=== PATIENT | female | born 2000 | race Hispanic/Latino ===

== ENCOUNTER 2021-03-30 03:39 | Emergency (ER) | payer OTHER ==
[2021-03-30 03:54] VITALS: BP 119/90
[2021-03-30] MEDS ORDERED: DiphenhydrAMINE HCL 50 MG/ML VIAL IV ONE (04:00)
[2021-03-30 04:06] LABS: BASOPHILS % (AUTO) 0.6 % (0.0-5.0); EOSINOPHILS % (AUTO) 1.4 % (0.0-8.0); HEMATOCRIT 41.2 % (36-48); LYMPHOCYTES % (AUTO) 17.4 % (21.0-51.0); MEAN CORPUSCULAR HEMOGLOBIN 27.3 pg (27.0-33.0); MEAN CORPUSCULAR HGB CONC 33.5 g/dL (32.0-36.0); MEAN CORPUSCULAR VOLUME 81.4 fL (79-99); MONOCYTES % (AUTO) 6.9 % (3.0-13.0); NEUTROPHILS % (AUTO) 73.3 % (40.0-77.0); PLATELET COUNT (AUTO) 158 K/uL (130-400); RED BLOOD CELL COUNT(AUTO) 5.06 MIL/uL (4.00-5.50); WHITE BLOOD COUNT (AUTO) 7.3 K/uL (4.8-10.8)
[2021-03-30 04:14] LABS: POTASSIUM 3.2 mmol/L (3.5-5.1)
[2021-03-30 04:27] LABS: ALBUMIN 3.6 g/dL (3.5-5.0); BILIRUBIN,TOTAL 0.8 mg/dL (0.2-1.0); TOTAL PROTEIN, SERUM 7.4 g/dL (6.0-8.3)
[2021-03-30] MEDS ORDERED: FAMO-136 PO (04:44)
[2021-03-30] MEDS ORDERED: HYDR50CA PO (04:44)
[2021-03-30] MEDS ORDERED: ALBUHFA IH (04:44)
[2021-03-30 05:10] VITALS: BP 120/88
== END 2021-03-30 05:20 | disposition home or self-care (01) ==
LOC: EDH 03:39
DX: R07.89 Other chest pain (principal); F41.9 Anxiety disorder, unspecified; R06.02 Shortness of breath; R05 Cough; Z20.822 Contact with and (suspected) exposure to COVID-19
CPT/HCPCS: 36415; 71045; 80053; 84484; 85025; 87635; 87804 ×2; 96374; 99284; C9803; J1200

== ENCOUNTER 2023-11-04 19:05 | Inpatient (IN) | payer MEDICAID, OTHER ==
[~2023-11-04] VITALS: Ht 157.5 cm; Wt 81.5 kg
[~2023-11-04 19:05] MED LIST: ALBUHFA IH; FAMO-136 PO; HYDR50CA PO
[2023-11-04] MEDS ORDERED: IOHEXOL-350 75 ML VIAL IV ONE (20:26)
[2023-11-04 20:57] LABS: BASOPHILS # (AUTO) 0.02 K/uL (0.00-0.20); BASOPHILS % (AUTO) 0.2 % (0.0-5.0); EOSINOPHILS # (AUTO) 0.05 K/uL (0.00-0.70); EOSINOPHILS % (AUTO) 0.6 % (0.0-8.0); HEMATOCRIT 37.6 % (36-48); IMMATURE GRANULOCYTE ABSOLUTE 0.04 K/uL (0-1); LYMPHOCYTES # (AUTO) 1.5 K/uL (1.0-4.8); LYMPHOCYTES % (AUTO) 17.3 % (21.0-51.0); MEAN CORPUSCULAR HEMOGLOBIN 25.6 pg (27.0-33.0); MEAN CORPUSCULAR HGB CONC 31.6 g/dL (32.0-36.0); MEAN CORPUSCULAR VOLUME 80.9 fL (79-99); MONOCYTES # (AUTO) 0.6 K/uL (0.1-1.0); MONOCYTES % (AUTO) 7.1 % (3.0-13.0); NEUTROPHILS # (AUTO) 6.5 K/uL (1.8-7.7); NEUTROPHILS % (AUTO) 74.3 % (40.0-77.0); PLATELET COUNT (AUTO) 187 K/uL (130-400); RED BLOOD CELL COUNT(AUTO) 4.65 MIL/uL (4.00-5.50); RED CELL DISTRIBUTION WIDTH 13.9 % (11.0-15.5); WHITE BLOOD COUNT (AUTO) 8.8 K/uL (4.8-10.8)
[2023-11-04 21:12] LABS: CREATININE 0.8 mg/dL (0.5-1.5); POTASSIUM 3.4 mmol/L (3.5-5.1)
[2023-11-04 21:16] LABS: BILIRUBIN,TOTAL 0.8 mg/dL (0.2-1.0); TOTAL PROTEIN, SERUM 6.6 g/dL (6.0-8.3)
[2023-11-04] MEDS: DICYCLOMINE 20MG (10MG/ML) AMP IM STA (22:31)
[2023-11-04] MEDS: ZOSYN 3.375GM +NS 50ML IV ONE (22:31)
[2023-11-04 22:32] LABS: ADD UA MICROSCOPIC YES; APPEARANCE,URINE CLEAR (CLEAR); BILIRUBIN,URINE NEGATIVE (NEGATIVE); COLOR,URINE YELLOW (YELLOW); GLUCOSE, URINE (UA) 200 mg/dL (NEGATIVE); KETONES,URINE NEGATIVE (NEGATIVE); LEUKOCYTE ESTERASE ,URINE NEGATIVE Leu/uL (NEGATIVE); NITRATE,URINE NEGATIVE (NEGATIVE); OCCULT BLOOD,URINE NEGATIVE (NEGATIVE); PH,URINE 5.5 (5.0-8.0); PROTEIN,URINE NEGATIVE (NEGATIVE); UROBILINOGEN,URINE 3 mg/dL (0.2-1.0)
[2023-11-04] MEDS: KETOROLAC 30MG VIAL (30MG/ML) IVP ONE (22:32)
[2023-11-04 22:39] LABS: MUCUS,URINE RARE LPF (None Seen); RBC,URINE 0-1 /HPF (0-1); WBC,URINE 0-1 /HPF (0-1)
[2023-11-04 22:51] LABS: SQUAMOUS EPITHELIAL CELL,UR Few /HPF (0-2)
[2023-11-05] VITALS (8 sets, daily range): BP systolic 89–105; BP diastolic 50–61; PULSE 67–85; RESP 18–20; O2SAT 100
[2023-11-05] MEDS ORDERED: LEVETIRACETAM 1,000 MG in 0.9%NACL 100ML 100 ML IV ONE (02:00)
[2023-11-05] MEDS: LEVETIRACETAM 500 MG/5 ML SD VIAL IV SCH (03:02)
[2023-11-05] MEDS ORDERED: MORPHINE 2 MG SYG IVP PRN (04:00)
[2023-11-05] MEDS ORDERED: ACETAMINOPHEN 325 MG TAB PO PRN ×2 (04:00)
[2023-11-05] MEDS: 0.9%NACL 1000ML 1,000 ML IV SCH (04:07)
[2023-11-05] MEDS: ZOSYN 3.375GM +NS 50ML IV SCH (04:07)
[2023-11-05] MEDS: POTASSIUM CHLORIDE 20MEQ/100ML 100 ML IV PRN (04:08)
[2023-11-05 04:53] LABS: BASOPHILS # (AUTO) 0.02 K/uL (0.00-0.20); BASOPHILS % (AUTO) 0.4 % (0.0-5.0); EOSINOPHILS # (AUTO) 0.05 K/uL (0.00-0.70); HEMATOCRIT 36.8 % (36-48); IMMATURE GRANULOCYTE ABSOLUTE 0.02 K/uL (0-1); LYMPHOCYTES # (AUTO) 1.6 K/uL (1.0-4.8); LYMPHOCYTES % (AUTO) 29.7 % (21.0-51.0); MEAN CORPUSCULAR HEMOGLOBIN 25.6 pg (27.0-33.0); MEAN CORPUSCULAR HGB CONC 32.3 g/dL (32.0-36.0); MEAN CORPUSCULAR VOLUME 79.1 fL (79-99); MONOCYTES # (AUTO) 0.4 K/uL (0.1-1.0); MONOCYTES % (AUTO) 8.4 % (3.0-13.0); NEUTROPHILS # (AUTO) 3.1 K/uL (1.8-7.7); NEUTROPHILS % (AUTO) 60.1 % (40.0-77.0); PLATELET COUNT (AUTO) 192 K/uL (130-400); RED BLOOD CELL COUNT(AUTO) 4.65 MIL/uL (4.00-5.50); WHITE BLOOD COUNT (AUTO) 5.2 K/uL (4.8-10.8)
[2023-11-05 05:03] LABS: INR <= 0.93 (0.85-1.15); PROTHROMBIN TIME 10.5 SEC (9.6-11.6)
[2023-11-05 05:04] LABS: PARTIAL THROMBOPLASTIN TIME 24.3 SEC (26.3-35.5)
[2023-11-05 05:06] LABS: ALBUMIN 2.8 g/dL (3.5-5.0); BILIRUBIN,DIRECT 0.3 mg/dL (0.0-0.3); BILIRUBIN,TOTAL 0.6 mg/dL (0.2-1.0); CREATININE 0.8 mg/dL (0.5-1.5); MAGNESIUM 1.8 mg/dL (1.80-2.40); POTASSIUM 3.1 mmol/L (3.5-5.1); TOTAL PROTEIN, SERUM 6.2 g/dL (6.0-8.3)
[2023-11-05 05:08] LABS: HEMOGLOBIN A1C 7.7 % (4.0-6.0)
[2023-11-05] MEDS: FAMOTIDINE 20MG VIAL IV SCH (08:48)
[2023-11-05] MEDS: MAGNESIUM 2GM PREMIX 50ML 50 ML IV PRN (08:53)
[2023-11-05] MEDS ORDERED: COMPOUND IV MISC 1 EACH IVSOLN MISC PRN (09:30)
[2023-11-05] MEDS: LEVETIRACETAM 500 MG in 0.9%NACL 100ML 100 ML IV SCH (10:57)
[2023-11-05] MEDS: KCL 20 MEQ ERTAB PO PRN (13:29)
[2023-11-05] MEDS ORDERED: POTASSIUM CHLORIDE 20MEQ/100ML 100 ML IV PRN (13:30)
[2023-11-06] VITALS (8 sets, daily range): BP systolic 87–108; BP diastolic 48–67; PULSE 63–80; RESP 16–18; O2SAT 98
[2023-11-06 13:16] LABS: CREATININE 0.8 mg/dL (0.5-1.5); POTASSIUM 3.8 mmol/L (3.5-5.1)
[2023-11-06 13:20] LABS: BILIRUBIN,TOTAL 0.4 mg/dL (0.2-1.0); MAGNESIUM 1.9 mg/dL (1.80-2.40); TOTAL PROTEIN, SERUM 6.6 g/dL (6.0-8.3)
[2023-11-07] VITALS (31 sets, daily range): BP systolic 88–132; BP diastolic 32–76; PULSE 61–86; RESP 15–22; O2SAT 98
[2023-11-07] MEDS ORDERED: BUPIVACAINE/PF 0.25% 30ML VIAL IJ ONE (10:08)
[2023-11-07] MEDS ORDERED: BUPIVACAINE/PF 0.25% 10ML VIAL IJ ONE (10:08)
[2023-11-07] MEDS ORDERED: LIDOCAINE PF 100MG/5ML (2%) SYRINGE 5ML ONE (10:14)
[2023-11-07] MEDS ORDERED: ROCURONIUM BROMIDE 10MG/1ML 5ML VL ONE (10:15)
[2023-11-07] MEDS ORDERED: PROPOFOL 10 MG/ML 20ML VIAL IV ONE ×2 (10:15→10:59)
[2023-11-07] MEDS ORDERED: GLYCOPYRROLATE 0.2 MG/ML 5 ML VIAL ONE (10:15)
[2023-11-07] MEDS ORDERED: FENTANYL CITRATE PF 50 MCG/1 ML 2ML VIAL ONE (10:15)
[2023-11-07] MEDS ORDERED: MIDAZOLAM HCL 1 MG/ML 2ML VIAL ONE (10:19)
[2023-11-07] MEDS: LACTATED RINGERS 1000ML 1,000 ML IV ONE (10:32)
[2023-11-07] MEDS ORDERED: ONDANSETRON 4MG INJ ONE (11:11)
[2023-11-07] MEDS: BUPIVACAINE/PF 0.5% 30ML VIAL ONE (11:13)
[2023-11-07] MEDS: FENTANYL CITRATE PF 50 MCG/1 ML 2ML VIAL ONE (12:20)
[2023-11-07] MEDS: FAMOTIDINE 20MG VIAL IV ONE (12:54)
[2023-11-07] MEDS: HYDROMORPHONE 1 MG INJ ONE (12:54)
[2023-11-07] MEDS: ZOSYN 3.375GM+NS 50ML 0 ML ONE (12:54)
[2023-11-07] MEDS: POTASSIUM CHLORIDE 10% ELIXIR 20 MEQ/15 ML UDCUP PO PRN (17:56)
[2023-11-08 01:00] VITALS: BP 113/59; PULSE 86; RESP 18
[2023-11-08 03:55] LABS: BASOPHILS # (AUTO) 0.02 K/uL (0.00-0.20); BASOPHILS % (AUTO) 0.2 % (0.0-5.0); EOSINOPHILS # (AUTO) 0.06 K/uL (0.00-0.70); EOSINOPHILS % (AUTO) 0.7 % (0.0-8.0); HEMATOCRIT 39.4 % (36-48); IMMATURE GRANULOCYTE ABSOLUTE 0.04 K/uL (0-1); LYMPHOCYTES # (AUTO) 1.4 K/uL (1.0-4.8); LYMPHOCYTES % (AUTO) 16.3 % (21.0-51.0); MEAN CORPUSCULAR HEMOGLOBIN 25.5 pg (27.0-33.0); MEAN CORPUSCULAR HGB CONC 31.2 g/dL (32.0-36.0); MEAN CORPUSCULAR VOLUME 81.7 fL (79-99); MONOCYTES # (AUTO) 0.7 K/uL (0.1-1.0); MONOCYTES % (AUTO) 8.4 % (3.0-13.0); NEUTROPHILS # (AUTO) 6.1 K/uL (1.8-7.7); NEUTROPHILS % (AUTO) 73.9 % (40.0-77.0); PLATELET COUNT (AUTO) 199 K/uL (130-400); RED BLOOD CELL COUNT(AUTO) 4.82 MIL/uL (4.00-5.50); RED CELL DISTRIBUTION WIDTH 13.9 % (11.0-15.5); WHITE BLOOD COUNT (AUTO) 8.3 K/uL (4.8-10.8)
[2023-11-08 04:18] LABS: BILIRUBIN,TOTAL 0.8 mg/dL (0.2-1.0); POTASSIUM 3.3 mmol/L (3.5-5.1); TOTAL PROTEIN, SERUM 6.7 g/dL (6.0-8.3)
[2023-11-08] MEDS: KETOROLAC 15MG/ML VIAL (15MG/ML) IV ONE (04:42)
[2023-11-08 04:56] VITALS: BP 111/58; PULSE 88; RESP 18
[2023-11-08 07:38] VITALS: BP 96/50; PULSE 64; RESP 17
[2023-11-08] MEDS ORDERED: METF-444 PO (10:40)
[2023-11-08] MEDS ORDERED: LEVE1000 PO (10:40)
[2023-11-08 11:32] VITALS: BP 107/68; PULSE 83; RESP 17
== END 2023-11-08 15:45 | disposition home or self-care (01) | DRG 263 ==
LOC: EDH 19:05 → EDHIP 19:06 → 4AH 11-05 05:00 → 4CH 11-05 20:50
PROVIDERS: ADMIT Hospitalist; ATTEND Hospitalist
PROC: 0FT44ZZ Resection of Gallbladder, Percutaneous Endoscopic Approach (ICD-10-PCS; principal; 2023-11-07 10:52)
DX: K80.00 Calculus of gallbladder with acute cholecystitis without obstruction (principal); K76.0 Fatty (change of) liver, not elsewhere classified; E87.6 Hypokalemia; R73.9 Hyperglycemia, unspecified; G40.909 Epilepsy, unspecified, not intractable, without status epilepticus; Z56.0 Unemployment, unspecified; Z91.148 Patient's other noncompliance with medication regimen for other reason; Z98.891 History of uterine scar from previous surgery; Z79.899 Other long term (current) drug therapy; Z90.49 Acquired absence of other specified parts of digestive tract; Z88.5 Allergy status to narcotic agent
CPT/HCPCS: 36415; 71045; 74177; 76705; 80048; 80053; 80076; 81001; 81025; 82150; 83036; 83690; 83735; 85025; 85610; 85730; G0378; J0500; J1170; J1885; J1953; J2001; J2250; J2405; J2543; J2704; J3010; J3475; J3480; J3490; J7030; J7120; Q9967; A4216; A4222; A4223; A4600; A4649; A4930; C1769; J0665

== ENCOUNTER 2024-09-23 19:00 | Inpatient (IN) | payer SELFPAY ==
[~2024-09-23] VITALS: Ht 157.5 cm; Wt 81.9 kg
[~2024-09-23 19:00] MED LIST changes: -ALBUHFA IH; -FAMO-136 PO; -HYDR50CA PO; +LEVE1000 PO; +METF-444 PO
--- NOTE | 2024-09-23 19:27 | ERN ---
ED Note History of Present Illness Stated Complaint: SEIZURE Chief Complaint: Seizure Time Seen by MD: 19:04 Dictation: This is a 24-year-old obese female who was brought in by EMS with complaints of a seizure activity. Patient has a history of seizures during in 2022 and underwent an emergency in July of 2023. Since then she has been on Keppra 1000 mg p.o. twice a day. According to EMS family stated that she did not take her Keppra and began having seizure which lasted approximately 2 minutes and she was postictal and unresponsive. Her sugar was about 468. 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 EN route to the ER, patient had another seizure activity as she arrived which lasted approximately another 2 minutes. I witnessed the activity which was rhythmic shaking on 1 side mostly right. She was responsive by nodding and had tears rolling down her cheeks. She did not yes to if she had a headache. Temperature 98.8 pulse 106 respirations 20 blood pressure 148/80 pulse oximetry 98% on 2 L via nasal cannula placed by EMS Her chronic medical problems include diabetes mellitus, hypertension and seizure disorder Allergies: Coded Allergies: codeine (Unverified Allergy, Severe, ANAPHYLAXIS, 11/07/23) Home Meds Reported Medications Levetiracetam (Keppra) 1,000 Mg Tablet, 1000 MG PO BID, TAB 11/08/23 Metformin HCl (Metformin HCl) 500 Mg Tablet, 500 MG PO BIDMEALS, TAB 11/08/23 Past Medical History Past Medical History: Anxiety, Depression, Diabetes-Type II, Hypertension, Seizure Surgical History: Cholecystectomy, Family History: Negative Social History: Negative History: Not Applicable RN Note Reviewed/Agreed w/PFSH: Yes Review of System Dictation Constitutional: Negative for fever,chills, and weight loss Eyes: Negative for injury, pain,redness, and discharge ENT: Negative for injury,pain or swelling Cardiovascular: Negative for chest pain, palpitations, and edema Respiratory: Negative for shortness of breath, cough, and wheezing, Abdomen/GI: Negative for abdominal pain, nausea, vomiting, diarrhea, and constipation Back: Negative for injury and pain : Negative for injury, bleeding and discharge MS/Extremity: Negative for injury and deformity Skin: Negative for rash, and discoloration Neuro: Negative for headache, weakness, numbness, tingling, and seizure Psych: Negative for suicide ideation, homicidal ideation, and hallucinations Initial Vital Sign VS Vital Signs Date Time Temp Pulse Resp B/P (MAP) Pulse Ox O2 Delivery O2 Flow Rate FiO2 09/23/24 19:02 98.8 106 20 140/80 95 Room Air 09/23/24 19:50 0 21 Physical Exam Dictation General: awake, alert, NAD Head/Face: Normocephalic, atraumatic Eyes: PERRL, EOMI, vision at baseline ENT: oral cavity clear, TMs clear, no signs of infection Neck: Trachea midline, supple, no nuchal rigidity Cardiovascular: RRR, normal S1/S2, No MRGs, no JVD Respiratory: CTAB, no respiratory distress, No rales or wheezes Abdomen: Soft, non-tender, non-distended, normal bowel sounds, no guarding or rebound. Skin: Warm, dry, normal turgor, no rash MS/Extremity: Pulses equal, no cyanosis, neurovascular intact, FROM Neuro: COAx4, GCS 15, strength 5/5, CN 2-12 intact, normal cerebellar exam, normal gait, Psych: Normal behavior, mood, and affect normal Extremities-trace edema without any palpable cords, Homans sign is negative Results (Laboratory/Radiology) Laboratory/Radiology Laboratory Tests Test 09/23/24 19:23 White Blood Count 5.7 K/uL (4.8-10.8) Red Blood Count 5.20 MIL/uL (4.00-5.50) Hemoglobin 14.2 g/dL (12.0-16.0) Hematocrit 42.8 % (36-48) Mean Corpuscular Volume 82.3 fL (79-99) Mean Corpuscular Hemoglobin 27.3 pg (27.0-33.0) Mean Corpuscular Hemoglobin Concent 33.2 g/dL (32.0-36.0) Red Cell Distribution Width 13.2 % (11.0-15.5) Platelet Count 152 K/uL (130-400) Mean Platelet Volume 13.8 fL (7.5-10.5) H Immature Granulocyte % (Auto) 0.4 % (0-1) Neutrophils (%) (Auto) 65.5 % (40.0-77.0) Lymphocytes (%) (Auto) 24.2 % (21.0-51.0) Monocytes (%) (Auto) 8.1 % (3.0-13.0) Eosinophils (%) (Auto) 1.4 % (0.0-8.0) Basophils (%) (Auto) 0.4 % (0.0-5.0) Neutrophils # (Auto) 3.7 K/uL (1.8-7.7) Lymphocytes # (Auto) 1.4 K/uL (1.0-4.8) Monocytes # (Auto) 0.5 K/uL (0.1-1.0) Eosinophils # (Auto) 0.08 K/uL (0.00-0.70) Basophils # (Auto) 0.02 K/uL (0.00-0.20) Absolute Immature Granulocyte (auto 0.02 K/uL (0-1) Nucleated Red Blood Cells 0.0 % (0.0-0.19) Sodium Level 134 mmol/L (136-145) L Potassium Level 3.5 mmol/L (3.5-5.1) Chloride Level 101 mmol/L (101-111) Carbon Dioxide Level 26 mmol/L (21-32) Blood Urea Nitrogen 10 mg/dL (7-18) Creatinine 0.9 mg/dL (0.5-1.0) Glomerular Filtration Rate Calc 90 mL/min (>90) Random Glucose 359 mg/dL (70-105) H Total Calcium 8.8 mg/dL (8.5-10.1) Serum Test, Qualitative NEGATIVE (NEGATIVE) Labs Reviewed?: Yes CT Scan Comment: PATIENT: LEONARDO IBARRA MR#: [id number] : 2000 SEX: F AGE: 24 LOCATION: [facility] ORDER 38 STATUS: REG REPORT#: [id number] SERVICE 36 REASON: seizures ORDERING PHYSICIAN: GEORGI ZAVALA MD PROCEDURE: HEAD WO - CT HEAD/BRAIN W/O CONTRAST CT HEAD/BRAIN W/O CONTRAST HISTORY: Seizures COMPARISON: None TECHNIQUE: Multiple sequential axial images of the head were obtained from the base of the skull through vertex. Patient was not given contrast through intravenous route. FINDINGS: The ventricles and extraventricular CSF spaces are nondilated for patient's age. There is no midline shift, mass effect or herniation. No acute intracranial bleed is seen. Visualized portion of the paranasal sinuses are grossly within normal limits. IMPRESSION: 1. No acute intracranial bleed is seen. CT was performed with one or more following dose reduction techniques: automated exposure control, adjustment of the mA and kv according to patient's size, or use of a iterative reconstruction technique. DICTATED BY: JENIFER PATRICK MD DATE: 09/23/242002 ELECTRONICALLY SIGNED BY: JENIFER PATRICK MD DATE: 09/23/242008 ED Course ED Course Orders Procedure Category Date Status Time Cbc With Differential LAB 09/23/24 Complete 19:11 0.9%Nacl 1000ml (Ns PHA 09/23/24 In Process 1000ml) 19:30 Basic Metabolic Panel LAB 09/23/24 Complete 19:11 Levetiracetam 500 PHA 09/23/24 In Process Mg/5 Ml Sd V (Keppra 5 22:00 Vital Signs Per CPOE 09/23/24 Transmitted Routine 19:11 Pulse Ox(Continuous) RT 09/23/24 Transmitted 19:11 Saline Lock Iv CPOE 09/23/24 Transmitted 19:11 Seizure Precautions CPOE 09/23/24 Transmitted 19:11 Neuro Checks Every 4 CPOE 09/23/24 Transmitted Hours 19:11 Testing, LAB 09/23/24 Complete Serum Hcg 19:11 Urinalysis Profile LAB 09/23/24 Logged 19:11 Ct Head/Brain W/O CT 09/23/24 Resulted Contrast 19:37 Current Medications Medications (Trade) Dose Ordered Sig/Pilar Route PRN Reason Start Time Stop Time Status Last Admin Dose Admin Levetiracetam 1500 mg/Sodium Chloride 100 ml @ 400 mls/hr Q8H6 IV 09/23/24 22:00 10/23/24 21:59 09/23/24 20:02 Sodium Chloride 1,000 ml @ 125 mls/hr ONCE ONCE IV 09/23/24 19:30 09/24/24 03:29 09/23/24 19:31 Vital Signs Date Time Temp Pulse Resp B/P (MAP) Pulse Ox O2 Delivery O2 Flow Rate FiO2 09/23/24 19:50 99.1 92 32 128/73 100 Room Air* 0 21 09/23/24 19:02 98.8 106 20 140/80 95 Room Air We will perform diagnostic labs, advanced imaging and administer medications according to the patient's complaint. Once the results are available, will review and personally interpreted the labs to rule out any acute life- threatening emergency the trach require immediate intervention and treatment. I will then re-evaluate the patient after treatment and diagnostic exams have return to determine whether the patient requires any further testing, can safely be discharged home or need further admission to hospital for additional treatment and evaluation. Medical Decision Making MDM MDM: Differential diagnosis: Suspect seizures secondary to noncompliance with antiepileptic agents however the other possibilities would be, , lack of sleep, stress, dehydration, injury Rationale: Tests considered and ordered secondary to shared decision making include: labs, ECG and radiology Previous outside records reviewed: Old ER visits. Risk of complication and/or morbidity or mortality of patient management: None Medications-Per medication reconciliation Need for hospitalization: Patient does meet criteria for hospitalization. Need for emergency major/minor surgery: No There are no social concerns with this patient. Prescription drug management Prescriptions will include symptomatic care Patient's prior external medical records from other ER visits were reviewed by me as indicated. Prior testing and results from previous visits were reviewed. Prior tests were taken into account with medical decision making and resource utilization, independent historian/historians were used to obtain complete medical history. I independently interpreted the test that were performed, results were reviewed by me and considered findings on radiology if ordered. Medical management and examination interpretation discussions were had by me with other qualified healthcare professionals as indicated for the patient's care. Problem List Problem List: (1) Uncontrolled diabetes mellitus with hyperglycemia (2) Recurrent seizures (3) Anxiety DX & DISP Disposition: Inpatient Decision to Admit Time: 20:24 Departure Impression: Primary Impression: Recurrent seizures Additional Impressions: Uncontrolled diabetes mellitus with hyperglycemia, Anxiety, Medically noncompliant Condition: Stable Additional Instructions: Patient was informed of all the diagnostic labs and procedures conducted in the emergency room today and demonstrated understanding of the results. I personally reviewed and interpreted all the diagnostic exams performed in the ER today. The patient will be admitted to the hospital for further treatment and evaluation. Disposition-admit to facility Condition-stable/guarded Course-uncertain at this time Pain status-decreased Assessment-exam unchanged Admission Certification- I certify that the patients status is appropriate and is based on my best clinical judgment and the patient's condition as documented in the medical records Referrals: SELF,REFERRAL (PCP) GEORGI ZAVALA MD Sep 23, 2024 19:27
[2024-09-23 19:30] LABS: BASOPHILS # (AUTO) 0.02 K/uL (0.00-0.20); BASOPHILS % (AUTO) 0.4 % (0.0-5.0); EOSINOPHILS # (AUTO) 0.08 K/uL (0.00-0.70); EOSINOPHILS % (AUTO) 1.4 % (0.0-8.0); HEMATOCRIT 42.8 % (36-48); IMMATURE GRANULOCYTE ABSOLUTE 0.02 K/uL (0-1); LYMPHOCYTES # (AUTO) 1.4 K/uL (1.0-4.8); LYMPHOCYTES % (AUTO) 24.2 % (21.0-51.0); MEAN CORPUSCULAR HEMOGLOBIN 27.3 pg (27.0-33.0); MEAN CORPUSCULAR HGB CONC 33.2 g/dL (32.0-36.0); MEAN CORPUSCULAR VOLUME 82.3 fL (79-99); MONOCYTES # (AUTO) 0.5 K/uL (0.1-1.0); MONOCYTES % (AUTO) 8.1 % (3.0-13.0); NEUTROPHILS # (AUTO) 3.7 K/uL (1.8-7.7); NEUTROPHILS % (AUTO) 65.5 % (40.0-77.0); PLATELET COUNT (AUTO) 152 K/uL (130-400); RED CELL DISTRIBUTION WIDTH 13.2 % (11.0-15.5); WHITE BLOOD COUNT (AUTO) 5.7 K/uL (4.8-10.8)
[2024-09-23] MEDS: 0.9%NACL 1000ML 1,000 ML IV ONE (19:31)
[2024-09-23 19:37] LABS: CREATININE 0.9 mg/dL (0.5-1.0); POTASSIUM 3.5 mmol/L (3.5-5.1)
[2024-09-23] MEDS: leveTIRACEtam 500 MG/5 ML SD V 1,500 MG in 0.9%NACL 100ML 100 ML IV SCH (20:02)
--- NOTE | 2024-09-23 20:09 | HMCIMG ---
CT HEAD/BRAIN W/O CONTRAST HISTORY: Seizures COMPARISON: None TECHNIQUE: Multiple sequential axial images of the head were obtained from the base of the skull through vertex. Patient was not given contrast through intravenous route. FINDINGS: The ventricles and extraventricular CSF spaces are nondilated for patient's age. There is no midline shift, mass effect or herniation. No acute intracranial bleed is seen. Visualized portion of the paranasal sinuses are grossly within normal limits. IMPRESSION: 1. No acute intracranial bleed is seen. CT was performed with one or more following dose reduction techniques: automated exposure control, adjustment of the mA and kv according to patient's size, or use of a iterative reconstruction technique.
--- NOTE | 2024-09-23 20:54 | NUR ---
DR. ZAVALA AT BEDSIDE AT THIS TIME, PT MORE RESPONSIVE, ABLE TO ANSWER QUESTIONS.
[2024-09-23 21:47] LABS: APPEARANCE,URINE CLEAR (CLEAR); BILIRUBIN,URINE NEGATIVE (NEGATIVE); COLOR,URINE LIGHT-YELLOW (YELLOW); GLUCOSE, URINE (UA) >=1000 mg/dL (NEGATIVE); KETONES,URINE 5 mg/dL (NEGATIVE); LEUKOCYTE ESTERASE ,URINE NEGATIVE Leu/uL (NEGATIVE); NITRATE,URINE NEGATIVE (NEGATIVE); OCCULT BLOOD,URINE NEGATIVE (NEGATIVE); PH,URINE 5.5 (5.0-8.0); PROTEIN,URINE NEGATIVE (NEGATIVE); UROBILINOGEN,URINE 0.2 mg/dL (0.2-1.0)
[2024-09-23 21:54] LABS: ADD UA MICROSCOPIC YES
[2024-09-23 21:56] LABS: WBC,URINE 0-1 /HPF (0-1)
[2024-09-23 22:11] LABS: AMPHET/METH SCREEN,URINE NEGATIVE (NEGATIVE); BARBITURATE SCREEN, URINE NEGATIVE (NEGATIVE); BENZODIAZEPINES SCREEN,URINE NEGATIVE (NEGATIVE); CANNABINOID SCREEN,URINE NEGATIVE (NEGATIVE); COCAINE SCREEN,URINE NEGATIVE (NEGATIVE); OPIATE SCREEN,URINE NEGATIVE (NEGATIVE); PHENCYCLIDINE SCREEN,URINE NEGATIVE (NEGATIVE)
--- NOTE | 2024-09-23 22:28 | HP ---
[facility] HISTORY AND PHYSICAL Date of Service: Sep 23, 2024 Time of Service: 22:28 Supervising physicians: Dr. Zhou and Dr. Delgado Hernandez HISTORY OF PRESENT ILLNESS: Ms Knight is a 24-year-old female with a history of DM, HTN, obesity, anxiety, and seizure who was brought in by EMS for evaluation of a seizure activity. Patient has a history of seizures during in 2022 and underwent an emergency in July of 2023. Since then she has been on Keppra 1000 mg p.o. twice a day. According to EMS family stated that she did not take her Keppra and began having seizure which lasted approximately 2 minutes and she was postictal and unresponsive. Her sugar was about 468. 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 EN route to the ER, patient had another seizure activity as she arrived which lasted approximately another 2 minutes. ED provider witnessed the activity which was rhythmic shaking on 1 side mostly right. She was responsive by nodding and had tears rolling down her cheeks. Ed reported that she did nodded yes when asked if she had a headache. V/S on arrival: Temperature 98.8 pulse 106 respirations 20 blood pressure 148/80 pulse oximetry 98% on 2 L via nasal cannula placed by EMS In ED patient was administered NS IV and Keppra IV [address] head was negative. ED provider request patient be admitted with the diagnosis of recurrent seizure, uncontrolled DM with hyperglycemia, anxiety, medical noncompliance. The patient was seen/assessed by me in room ED 11. Breathing was even, unlabored, in no distress. Oriented x4. patient denied headache. She stated that she has not taken any medications for her diabetes for her seizures, and that she is currently not seen a doctor. I informed her of labs, diagnostics, plan of care. She verbalized understanding and is agreement with the plan. Plan and assessment are listed below. REVIEW OF SYSTEMS 12-point ROS reviewed with patient. All pertinent positives mentioned above, otherwise negative, noncontributory, or non-pertinent. PAST MEDICAL HISTORY: Anxiety, depression, diabetes mellitus type 2, hypertension, seizure PAST SURGICAL HISTORY: , cholecystectomy PAST SOCIAL HISTORY: Denies: Alcohol, tobacco, illicit drug use. FAMILY HISTORY: Negative Coded Allergies: codeine (Unverified Allergy, Severe, ANAPHYLAXIS, 11/07/23) PHYSICAL EXAM GENERAL APPEARANCE: The patient is awake, alert, and oriented, in no acute cardiopulmonary distress. NEUROLOGICAL: Cranial nerves II-XII grossly intact. Motor is 5/5 in bilateral upper and lower extremities proximal to distal. No sensory deficits. HEENT: Face is symmetric. Pupils are equal and reactive. Extraocular movements are intact. NECK: Supple. No JVD. No thyromegaly. No submental, submandibular, pre- /postauricular, occipital or supraclavicular lymphadenopathy. CHEST: Normal chest expansion. No Telemetry. LUNGS: Absence of any rales, rhonchi or any wheezing. CARDIOVASCULAR: Regular. S1 and S2 normal. No appreciable rubs, murmurs or gallops. ABDOMEN: Obese. Soft, nontender, and nondistended. There is no rebound, voluntary guarding, or rigidity. : Deferred. No Alexander. EXTREMITIES: Non-edematous and not cyanotic. No clubbing. Good capillary refill. SKIN: No skin breakdown. Vital Sign (Last 24 Hours) 09/23/24 09/23/24 19:50 21:07 Temp 99.1 Pulse 75 Resp 21 B/P (MAP) 109/68 Pulse Ox 99 O2 Delivery Room Air* O2 Flow Rate 0 FiO2 21 LABS: Laboratory: Test 09/23/24 21:25 09/23/24 19:23 Range/Units Urine Color LIGHT-YELLOW YELLOW Urine Appearance CLEAR CLEAR Urine pH 5.5 5.0-8.0 Urine Specific [place] 1.039 H 1.001-1.031 Urine Protein NEGATIVE NEGATIVE mg/dL Urine Glucose (UA) >=1000 H NEGATIVE mg/dL Urine Ketones 5 H NEGATIVE mg/dL Urine Occult Blood NEGATIVE NEGATIVE Urine Nitrate NEGATIVE NEGATIVE Urine Bilirubin NEGATIVE NEGATIVE mg/dL Urine Urobilinogen 0.2 0.2-1.0 mg/dL Urine Leukocyte Esterase NEGATIVE NEGATIVE Pascual/uL Urine RBC 2-5 H 0-1 /HPF Urine WBC 0-1 0-1 /HPF Urine Bacteria None None Seen /HPF Urine Opiates Screen NEGATIVE NEGATIVE Urine Barbiturates Screen NEGATIVE NEGATIVE Urine Phencyclidine Screen NEGATIVE NEGATIVE Urine Amphetamines Screen NEGATIVE NEGATIVE Urine Benzodiazepines Screen NEGATIVE NEGATIVE Urine Cocaine Screen NEGATIVE NEGATIVE Urine Marijuana (THC) Screen NEGATIVE NEGATIVE White Blood Count 5.7 4.8-10.8 K/uL Red Blood Count 5.20 4.00-5.50 MIL/uL Hemoglobin 14.2 12.0-16.0 g/dL Hematocrit 42.8 36-48 % Mean Corpuscular Volume 82.3 79-99 fL Mean Corpuscular Hemoglobin 27.3 27.0-33.0 pg Mean Corpuscular Hemoglobin Concent 33.2 32.0-36.0 g/dL Red Cell Distribution Width 13.2 11.0-15.5 % Platelet Count 152 130-400 K/uL Mean Platelet Volume 13.8 H 7.5-10.5 fL Immature Granulocyte % (Auto) 0.4 0-1 % Neutrophils (%) (Auto) 65.5 40.0-77.0 % Lymphocytes (%) (Auto) 24.2 21.0-51.0 % Monocytes (%) (Auto) 8.1 3.0-13.0 % Eosinophils (%) (Auto) 1.4 0.0-8.0 % Basophils (%) (Auto) 0.4 0.0-5.0 % Neutrophils # (Auto) 3.7 1.8-7.7 K/uL Lymphocytes # (Auto) 1.4 1.0-4.8 K/uL Monocytes # (Auto) 0.5 0.1-1.0 K/uL Eosinophils # (Auto) 0.08 0.00-0.70 K/uL Basophils # (Auto) 0.02 0.00-0.20 K/uL Absolute Immature Granulocyte (auto 0.02 0-1 K/uL Nucleated Red Blood Cells 0.0 0.0-0.19 % Sodium Level 134 L 136-145 mmol/L Potassium Level 3.5 3.5-5.1 mmol/L Chloride Level 101 101-111 mmol/L Carbon Dioxide Level 26 21-32 mmol/L Blood Urea Nitrogen 10 7-18 mg/dL Creatinine 0.9 0.5-1.0 mg/dL Glomerular Filtration Rate Calc 90 >90 mL/min Random Glucose 359 H 70-105 mg/dL Total Calcium 8.8 8.5-10.1 mg/dL Serum Test, Qualitative NEGATIVE NEGATIVE Current Medications Medications (Trade) Dose Ordered Sig/Pilar Route PRN Reason Start Time Stop Time Status Last Admin Dose Admin Levetiracetam 1500 mg/Sodium Chloride 100 ml @ 400 mls/hr Q8H6 IV 09/23/24 22:00 10/23/24 21:59 09/23/24 20:02 400 MLS/HR DIAGNOSTICS / RADIOLOGY: [ ] ASSESSMENT: Recurrent seizure, POA currently not taking antiseizure medication Uncontrolled diabetes with hyperglycemia, POA Hypertension, P Hyponatremia, POA Ketonuria, POA Anxiety Depression Obesity, BMI 29 Medication noncompliance PLAN: Admit patient to medical floor with telemetry monitoring and seizure precaution. Continue Keppra 1500 mg IV q.8 hours for now. Continue NS at 100 mL an hour. Follow up with Neurology upon discharge for seizure monitoring, no neurologist in-house. Education done on obtaining a family doctor for medical management of chronic conditions. Education done on weight loss. Supplemental oxygen as needed to keep SpO2 equal to greater than 92%. P.r.n. medications for: Pain management, fever, hypertension, nausea, vomiting, constipation. Glucometer checks a.c. and HS with insulin regular sliding scale coverage as needed per protocol. Blood pressure checks every4 hours and as needed. Reconcile home medications once available. Monitor renal and liver function. Monitor electrolytes and treat accordingly. A.m. labs: CBC, BMP, Mag, phos, TSH, A1c. GI and DVT prophylaxis Protonix and Lovenox Further orders per hospitalization course. ADVANCED CARE PLANNING 1. Which of the following were discussed? Hospice Care - No Therapeutic options - Yes Advance Directives - Yes Other discussions - 2. Discussed with who? Patient 3. Voluntary nature of this service was explained to the patient? Yes 4. Amount of time spent - __ over 35 minute 5. Reviewed by Physician? (if this service was performed by NPP) Yes / No ADDENDUM: - Order EEG - Transition to PO keppra - Order A1C and follow up - Continue seizure precautions ATTENDING PHYSICIAN ATTESTATION: I have seen and discussed this patient with the midlevel and I agree with their plan. See my addendum for updates to the medical plan MD MARIKA Jacinto LUCIA M [facility] Sep 23, 2024 22:28 INDIO ZHOU MD Sep 24, 2024 20:07
[2024-09-23] MEDS ORDERED: acetaMINOPHEN 325 MG TAB PO PRN (22:30)
[2024-09-23] MEDS ORDERED: GLUCAGON 1MG KIT 1 MG ML IM PRN (22:30)
[2024-09-23] MEDS ORDERED: acetaMINOPHEN 650 MG SUPPOSITORY RC PRN (22:30)
[2024-09-23] MEDS ORDERED: PoTASSium chloRIDE 20MEQ/100ML 100 ML IV PRN (22:30)
[2024-09-23] MEDS ORDERED: doCUSate SODIUM 100 MG CAP PO PRN (22:30)
[2024-09-23] MEDS ORDERED: TEMAZepam 15 MG CAPSULE PO PRN (22:30)
[2024-09-23] MEDS ORDERED: LACTULOSE 20 GM/30 ML UDCUP PO PRN (22:30)
[2024-09-23] MEDS ORDERED: hydrALAZine 20MG/ML VIAL IV PRN (22:30)
[2024-09-23] MEDS ORDERED: ondanSETRON 4MG INJ IVP PRN (22:30)
[2024-09-23] MEDS ORDERED: DEXTROSE 50%-WATER 50 ML DISP.SYRIN IV PRN (22:30)
[2024-09-23] MEDS: 0.9%NACL 1000ML 1,000 ML IV SCH (22:37)
[2024-09-23 23:05] LABS: SARS-CoV-2, RNA, NAAT NEGATIVE SARS CoV-2 (NEGATIVE)
[2024-09-23 23:09] LABS: INFLUENZA TYPE A Negative For Type A (NEGATIVE); INFLUENZA TYPE B Negative For Type B (NEGATIVE)
[2024-09-24 06:49] LABS: HEMATOCRIT 40.4 % (36-48); MEAN CORPUSCULAR HEMOGLOBIN 27.1 pg (27.0-33.0); MEAN CORPUSCULAR HGB CONC 31.7 g/dL (32.0-36.0); MEAN CORPUSCULAR VOLUME 85.4 fL (79-99); RED BLOOD CELL COUNT(AUTO) 4.73 MIL/uL (4.00-5.50); RED CELL DISTRIBUTION WIDTH 13.2 % (11.0-15.5); WHITE BLOOD COUNT (AUTO) 5.1 K/uL (4.8-10.8)
[2024-09-24 07:16] LABS: CREATININE 0.8 mg/dL (0.5-1.0); MAGNESIUM 1.6 mg/dL (1.80-2.40); POTASSIUM 3.7 mmol/L (3.5-5.1); THYROID STIMULATING HORMONE 1.59 uIU/mL (0.36-3.74)
[2024-09-24] MEDS: INSULIN humuLIN R 100 UNIT/ML 3ML SQ SCH (08:34)
[2024-09-24] MEDS: ENOXAPARIN SODIUM 30 MG/0.3 ML SQ SCH (08:38)
[2024-09-24] MEDS: PANTOPrazole 40 MG TAB DR PO SCH (08:38)
[2024-09-24 09:35] LABS: HEMOGLOBIN A1C 10.7 % (4.0-6.0)
[2024-09-24] MEDS: INSULIN GLARgine 100 UNITS/ML 10 ML VIAL SQ SCH (09:42)
--- NOTE | 2024-09-24 10:49 | NUR ---
PT HAD A 5 MIN SEIZURE PRN MEDICATION GIVEN. SEIZURE PROTOCOL PRECAUTIONS WERE IN PLACE.
[2024-09-24] MEDS: LORazepam 2 MG/ML 1 ML VIAL IVP PRN (10:52)
--- NOTE | 2024-09-24 14:13 | NUR ---
PT HAD A 4 MIN SEIZURE IN BED, SEIZURE PRECAUTIONS, PRN MEDICATION GIVEN. HR 96 100% BP 91/74
--- NOTE | 2024-09-24 14:24 | NUR ---
Ameena left message for Reema Knight, mother [phone]. Sw attempted to reach pt at work #, was told they have no one by that name that works there.
[2024-09-24 14:36] LABS: HIV 1&2 ANTIBODY Non-Reactive (Negative); HIV-1 p24 Antigen Non-Reactive (Negative)
[2024-09-24] MEDS: PoTASSium chl 10% ELIXIR 20MEQ 20 MEQ/15 ML UDCUP PO PRN (17:53)
[2024-09-24] MEDS: MAGNESIUM 2GM PREMIX 50ML 50 ML IV PRN (17:53)
--- NOTE | 2024-09-24 20:04 | NUR ---
REPORT GIVEN TO CUAC ODELL ALL QUESTIONS ANSWERED AT THIS TIME
--- NOTE | 2024-09-24 20:15 | PN ---
[facility] PROGRESS NOTE Date of Service: Sep 24, 2024 Time of Service: 20:08 SUBJECTIVE: 2/3 Pt seen at bedside, no acute events overnight. Nursing reports another seizure this am broken with IV ativan. She has been stable otherwise. At bedside patient is sleepy but asymptomatic. She reports she has been asymptomatic with all her medications as she does not have insurance. Social se rvices consulted to assist with getting affordable medications and care. EEG has been ordered, patient transitioned to PO keppra at an increased dose. Continue observation with seizure precautions. REVIEW OF SYSTEMS 12-point ROS reviewed with patient. All pertinent positives mentioned above, otherwise negative, noncontributory, or non-pertinent. PHYSICAL EXAM GENERAL APPEARANCE: The patient is awake, alert, and oriented, in no acute cardiopulmonary distress. NEUROLOGICAL: Cranial nerves II-XII grossly intact. Motor is 5/5 in bilateral upper and lower extremities proximal to distal. No sensory deficits. HEENT: Face is symmetric. Pupils are equal and reactive. Extraocular movements are intact. NECK: Supple. No JVD. No thyromegaly. No submental, submandibular, pre- /postauricular, occipital or supraclavicular lymphadenopathy. CHEST: Normal chest expansion. No Telemetry. LUNGS: Absence of any rales, rhonchi or any wheezing. CARDIOVASCULAR: Regular. S1 and S2 normal. No appreciable rubs, murmurs or gallops. ABDOMEN: Obese. Soft, nontender, and nondistended. There is no rebound, voluntary guarding, or rigidity. : Deferred. No Alexander. EXTREMITIES: Non-edematous and not cyanotic. No clubbing. Good capillary refill. SKIN: No skin breakdown. Vital Signs (last 8hr) Date Time Temp Pulse Resp B/P (MAP) Pulse Ox O2 Delivery O2 Flow Rate FiO2 09/24/24 18:13 98.8 90 18 116/78 95 Nasal Cannula* 10 1909/24/24 16:54 98.8 86 18 107/64 95 Nasal Cannula* 10 1909/24/24 13:00 98.8 82 18 108/70 95 Nasal Cannula* 10 19 LABS: Laboratory: Test 09/24/24 17:59 09/24/24 13:37 09/24/24 09:43 09/24/24 06:33 Range/Units Whole Blood Glucose 241 H 70-110 MG/DL HIV (1&2) Antibody Non-Reactive Negative HIV P24 Antigen, Qualitative Non-Reactive Negative Lactic Acid Level 1.7 0.8-2.5 mmol/L White Blood Count 5.1 4.8-10.8 K/uL Red Blood Count 4.73 4.00-5.50 MIL/uL Hemoglobin 12.8 12.0-16.0 g/dL Hematocrit 40.4 36-48 % Mean Corpuscular Volume 85.4 79-99 fL Mean Corpuscular Hemoglobin 27.1 27.0-33.0 pg Mean Corpuscular Hemoglobin Concent 31.7 L 32.0-36.0 g/dL Red Cell Distribution Width 13.2 11.0-15.5 % Platelet Count 138 130-400 K/uL Mean Platelet Volume 13.7 H 7.5-10.5 fL Nucleated Red Blood Cells 0.0 0.0-0.19 % Sodium Level 143 136-145 mmol/L Potassium Level 3.7 3.5-5.1 mmol/L Chloride Level 110 101-111 mmol/L Carbon Dioxide Level 27 21-32 mmol/L Blood Urea Nitrogen 8 7-18 mg/dL Creatinine 0.8 0.5-1.0 mg/dL Glomerular Filtration Rate Calc 104 >90 mL/min Random Glucose 228 H 70-105 mg/dL Hemoglobin A1c 10.7 H 4.0-6.0 % Estimated Average Glucose (eAG) 260 H 70-126 mg/dL Total Calcium 8.2 L 8.5-10.1 mg/dL Phosphorus Level 3.0 2.5-4.9 mg/dL Magnesium Level 1.60 L 1.80-2.40 mg/dL Total Creatine Kinase 38 21-232 U/L Thyroid Stimulating Hormone (TSH) 1.59 0.36-3.74 uIU/mL Test 09/23/24 22:30 09/23/24 21:25 09/23/24 19:23 Range/Units Influenza Type A Antigen Negative For Type A NEGATIVE Influenza Type B Antigen Negative For Type B NEGATIVE SARS-CoV-2, RNA, NAAT NEGATIVE SARS CoV-2 NEGATIVE Urine Color LIGHT-YELLOW YELLOW Urine Appearance CLEAR CLEAR Urine pH 5.5 5.0-8.0 Urine Specific [place] 1.039 H 1.001-1.031 Urine Protein NEGATIVE NEGATIVE mg/dL Urine Glucose (UA) >=1000 H NEGATIVE mg/dL Urine Ketones 5 H NEGATIVE mg/dL Urine Occult Blood NEGATIVE NEGATIVE Urine Nitrate NEGATIVE NEGATIVE Urine Bilirubin NEGATIVE NEGATIVE mg/dL Urine Urobilinogen 0.2 0.2-1.0 mg/dL Urine Leukocyte Esterase NEGATIVE NEGATIVE Pascual/uL Urine RBC 2-5 H 0-1 /HPF Urine WBC 0-1 0-1 /HPF Urine Bacteria None None Seen /HPF Urine Opiates Screen NEGATIVE NEGATIVE Urine Barbiturates Screen NEGATIVE NEGATIVE Urine Phencyclidine Screen NEGATIVE NEGATIVE Urine Amphetamines Screen NEGATIVE NEGATIVE Urine Benzodiazepines Screen NEGATIVE NEGATIVE Urine Cocaine Screen NEGATIVE NEGATIVE Urine Marijuana (THC) Screen NEGATIVE NEGATIVE Immature Granulocyte % (Auto) 0.4 0-1 % Neutrophils (%) (Auto) 65.5 40.0-77.0 % Lymphocytes (%) (Auto) 24.2 21.0-51.0 % Monocytes (%) (Auto) 8.1 3.0-13.0 % Eosinophils (%) (Auto) 1.4 0.0-8.0 % Basophils (%) (Auto) 0.4 0.0-5.0 % Neutrophils # (Auto) 3.7 1.8-7.7 K/uL Lymphocytes # (Auto) 1.4 1.0-4.8 K/uL Monocytes # (Auto) 0.5 0.1-1.0 K/uL Eosinophils # (Auto) 0.08 0.00-0.70 K/uL Basophils # (Auto) 0.02 0.00-0.20 K/uL Absolute Immature Granulocyte (auto 0.02 0-1 K/uL Serum Test, Qualitative NEGATIVE NEGATIVE Current Medications Medications (Trade) Dose Ordered Sig/Pilar Route PRN Reason Start Time Stop Time Status Last Admin Dose Admin Acetaminophen (TYLenol 325MG TAB) 650 mg Q6H PRN PO FEVER/MILD PAIN LEVEL 1-3 09/23/24 22:30 10/23/24 22:29 Acetaminophen (TYLenol 650MG SUPPOSITORY) 650 mg Q6H PRN RC FEVER / MILD PAIN 1-3 IF NPO 09/23/24 22:30 10/23/24 22:29 Dextrose (D50w) 50 ml AD PRN IV HYPOGLYCEMIA PROTOCOL 09/23/24 22:30 10/23/24 22:29 Docusate Sodium (COLace 100MG CAP) 100 mg BID PRN PO c 2/2/25 22:30 10/23/24 22:29 Enoxaparin Sodium (Lovenox) 30 mg DAILY SQ 09/24/24 09:00 10/24/24 08:59 09/24/24 08:38 30 MG Glucagon (Glucagon 1mg Kit) 1 mg AD PRN IM HYPOGLYCEMIA PROTOCOL 09/23/24 22:30 10/23/24 22:29 Hydralazine HCl (APRESOLine 20MG INJ) 10 mg Q2H PRN IV SBP GREATER THAN 160 09/23/24 22:30 10/23/24 22:29 Insulin Glargine (LANtus 100 UNITS/ML 10 ML VIAL) 10 units BID@0730,2100 SQ 09/24/24 09:30 10/24/24 09:29 09/24/24 09:42 10 UNITS Insulin Human Regular (humuLIN R 100 UNIT/ML 3ML) INSULIN SLIDING SCAL... ACHS SQ 09/24/24 07:30 10/24/24 07:29 09/24/24 18:03 8 UNIT Lactulose (Constulose 20gm/ 30ml Udcup) 20 gm Q6H PRN PO CONSTIPATION 09/23/24 22:30 10/23/24 22:29 Levetiracetam (kepPRA 500 MG TABLET) 1,000 mg BID PO 09/24/24 21:00 09/24/24 12:07 DC Levetiracetam (kepPRA 500 MG TABLET) 1,500 mg BID PO 09/24/24 21:00 10/24/24 20:59 Levetiracetam 1500 mg/Sodium Chloride 100 ml @ 400 mls/hr Q8H6 IV 09/23/24 22:00 09/24/24 09:07 DC 09/24/24 05:47 400 MLS/HR Lorazepam (AtiVAN) 1 mg Q1H PRN IVP SEIZURES 09/23/24 22:30 09/30/24 22:29 09/24/24 19:55 1 MG Magnesium Sulfate 50 ml @ 0 mls/hr PROTOCOL PRN IV MAGNESIUM PROTOCOL 09/23/24 22:30 10/23/24 22:29 09/24/24 17:53 1.6 MLS/HR Ondansetron HCl (zoFRAN 4MG INJ) 4 mg Q6H PRN IVP NAUSEA/VOMITING 09/23/24 22:30 10/23/24 22:29 Pantoprazole Sodium (PROTonix 40MG TAB) 40 mg DAILY PO 09/24/24 09:00 10/24/24 08:59 09/24/24 08:38 40 MG Potassium Chloride 100 ml @ 100 mls/hr AD PRN IV POTASSIUM PROTOCOL 09/23/24 22:30 10/23/24 22:29 Potassium Chloride (K-Dur/Klor-Con 20meq) 20 meq AD PRN PO POTASSIUM PROTOCOL 09/23/24 22:30 10/23/24 22:29 Potassium Chloride (KCl 10% Elixir 20meq/15ml) 20 meq AD PRN PO POTASSIUM PROTOCOL 09/23/24 22:30 10/23/24 22:29 09/24/24 17:53 20 MEQ Sodium Chloride 1,000 ml @ 100 mls/hr Q10H IV 09/23/24 22:30 10/23/24 22:29 09/24/24 08:38 100 MLS/HR Temazepam (restORIL 15 MG CAP) 15 mg HS PRN PO INSOMNIA/SLEEP 09/23/24 22:30 10/23/24 22:29 DIAGNOSTICS / RADIOLOGY: [ ] ASSESSMENT: Recurrent seizure, POA currently not taking antiseizure medication Uncontrolled diabetes with hyperglycemia, POA Hypertension, P Hyponatremia, POA Ketonuria, POA Anxiety Depression Obesity, BMI 29 Medication noncompliance PLAN: Admit patient to medical floor with telemetry monitoring and seizure precaution. Continue Keppra 1500 mg PO BID Continue NS at 100 mL an hour. Follow up with Neurology upon discharge for seizure monitoring, no neurologist in-house. Education done on obtaining a family doctor for medical management of chronic conditions. EEG pending, will follow up support services manager consulted to assist with medications and PCP care Supplemental oxygen as needed to keep SpO2 equal to greater than 92%. P.r.n. medications for: Pain management, fever, hypertension, nausea, vomiting, constipation. Glucometer checks a.c. and HS with insulin regular sliding scale coverage as needed per protocol. Disposition: pending improvement in clinical status, EEG, resolution of seizures INDIO ZHOU MD Sep 24, 2024 20:15
[2024-09-24 20:16] VITALS: BP 105/62; PULSE 102; RESP 18; TEMP 98.5
[2024-09-24 20:45] VITALS: O2SAT 98
[2024-09-24] MEDS ORDERED: leveTIRACEtam 500 MG TABLET PO SCH (21:00)
[2024-09-24] MEDS: leveTIRACEtam 500 MG TABLET PO SCH (21:50)
[2024-09-24 23:05] VITALS: BP 111/78; PULSE 93; RESP 18; TEMP 97.7
--- NOTE | 2024-09-24 23:09 | NUR ---
PATIENT HYPERVENTILATING AND HEART RATE AT 140s PER TELEMETRY. PATIENT HAD STATED ON ADMISSION THAT BEFORE SHE GETS A SEIZURE, SHE BEGINS HYPERVENTILATING. 1MG OF ATIVAN GIVEN TO PATIENT IV DURING SEIZURE EPISODE. 2L OF O2 VIA NASAL CANNULA PLACED ON PATIENT. PATIENT CALM AND RESTING AFTER ATIVAN DOSE GIVEN. WILL CONTINUE TO MONITOR
[2024-09-25 04:00] VITALS: BP 91/47; PULSE 83; RESP 18; TEMP 97.9
[2024-09-25 04:59] LABS: BASOPHILS # (AUTO) 0.01 K/uL (0.00-0.20); BASOPHILS % (AUTO) 0.2 % (0.0-5.0); EOSINOPHILS # (AUTO) 0.09 K/uL (0.00-0.70); EOSINOPHILS % (AUTO) 1.6 % (0.0-8.0); HEMATOCRIT 40.1 % (36-48); IMMATURE GRANULOCYTE ABSOLUTE 0.03 K/uL (0-1); LYMPHOCYTES # (AUTO) 1.7 K/uL (1.0-4.8); LYMPHOCYTES % (AUTO) 30.1 % (21.0-51.0); MEAN CORPUSCULAR HEMOGLOBIN 26.8 pg (27.0-33.0); MEAN CORPUSCULAR HGB CONC 31.9 g/dL (32.0-36.0); MEAN CORPUSCULAR VOLUME 84.1 fL (79-99); MONOCYTES # (AUTO) 0.4 K/uL (0.1-1.0); MONOCYTES % (AUTO) 7.7 % (3.0-13.0); NEUTROPHILS # (AUTO) 3.4 K/uL (1.8-7.7); NEUTROPHILS % (AUTO) 59.9 % (40.0-77.0); PLATELET COUNT (AUTO) 149 K/uL (130-400); RED BLOOD CELL COUNT(AUTO) 4.77 MIL/uL (4.00-5.50); RED CELL DISTRIBUTION WIDTH 13.2 % (11.0-15.5); WHITE BLOOD COUNT (AUTO) 5.6 K/uL (4.8-10.8)
[2024-09-25 05:09] LABS: ALBUMIN 2.8 g/dL (3.5-5.0); BILIRUBIN,TOTAL 0.8 mg/dL (0.2-1.0); CREATININE 0.7 mg/dL (0.5-1.0); MAGNESIUM 1.9 mg/dL (1.80-2.40); PHOSPHORUS 3.3 mg/dL (2.5-4.9); POTASSIUM 3.4 mmol/L (3.5-5.1); TOTAL PROTEIN, SERUM 6.1 g/dL (6.0-8.3)
[2024-09-25 08:00] VITALS: BP 119/72; PULSE 83; RESP 18; TEMP 97.8; O2SAT 99
[2024-09-25] MEDS ORDERED: hydrOXYzine 25 MG TABLET PO PRN (08:00)
--- NOTE | 2024-09-25 08:07 | NUR ---
TRANSFER OUT REQUEST FOR INHOUSE NEUROLOGIST PER DR ZHOU. ROYA THURMAN
[2024-09-25] MEDS: hydrOXYzine 25 MG TABLET PO SCH (08:31)
[2024-09-25] MEDS: OXcarbazepine 300 MG TAB PO SCH (08:32)
--- NOTE | 2024-09-25 08:37 | NUR ---
DCP: HOME Sw spoke to pt's mother Reema Knight [phone]. Pe mother, pt currently staying with her father Emir Knight [phone] and step mother. Pt goes from father to mother's house as she wants. Pt has a 1yro child she cares for. Pt unemployed, independent, able to complete ADLS and IADLS on her own. Pt is seen at [facility] for care and meds. Pt to discharge to mother's home Addendum: 09/25/24 at 0955 by GRIFFIN LONGORIA Amended: Links added.
--- NOTE | 2024-09-25 10:00 | NUR ---
EEG EEG UNABLE TO BE PERFORMED DUE TO PATIENT HAVING VERY OILY HAIR. PATIENT PENDING TRANSFER TO [facility] FOR NEUROLOGY CARE. NOTIFIED MD OF UNSUCCESSFUL EEG. PER DR. ZHOU, CONTINUE TO ATTEMPT AND OBTAIN EEG UNTIL PATIENT IS TRANSFERRED OUT. NOTIFIED EMERGENCY DEPARTMENT NURSE.
--- NOTE | 2024-09-25 10:03 | NUR ---
TRANSFER CALL PLACE TO [facility] SPOKE WITH HS DECLINED FOR NO NEUROLOGIST ARCHITECTURAL RENDERER. ROYA THURMAN
--- NOTE | 2024-09-25 10:06 | NUR ---
TRANSFER CALL PLACE TO [facility] [phone] SPOKE WITH NEEL INTAKE NURSE. INFORMATION PROVIDED AND WILL CALL BACK. ROYA THURMAN
--- NOTE | 2024-09-25 10:35 | NUR ---
TRANSFER CALL BACK FROM INTAKE NURSE WITH A DECLINED FROM [facility]. [facility] DOES NOT HAVE A BED AT THIS TIME PT WILL REMAIN ON THE LIST FOR A BED WILL FOLLOW UP LATER. ROYA THURMAN
--- NOTE | 2024-09-25 11:10 | NUR ---
TRANSFER MET WITH PT AND MOTHER AT BEDSIDE INFORM OF TRANSFER PROCESS BOTH VERBALIZED UNDERSTANDING. ROYA THURMAN
[2024-09-25 12:00] VITALS: BP 104/54; PULSE 113; RESP 18; TEMP 98.3
--- NOTE | 2024-09-25 12:35 | NUR ---
TRANSFER CALL PLACE TO [facility] [phone] SPOKE WITH ISABEL INFORMATION PROVIDED WILL CALL BACK. ROYA THURMAN
--- NOTE | 2024-09-25 14:18 | NUR ---
TRANSFER REQUEST [facility] INTAKE CALL BACK FOR DENIAL PER ADMINISTRATION FOR NO BEDS. INSTRUCTED TO TRY ADÁN PRYOR RN
--- NOTE | 2024-09-25 15:20 | NUR ---
TRANSFER CALL BACK RECEIVED FROM [facility] PER NEEL INTAKE NURSE STATES WORKING ON BED AND TO FAX CLINICALS TO [phone] WHICH WAS DONE. ROYA THURMAN
--- NOTE | 2024-09-25 15:55 | PN ---
[facility] PROGRESS NOTE Date of Service: Sep 25, 2024 Time of Service: 15:51 SUBJECTIVE: 2/3 Pt seen at bedside, no acute events overnight. Nursing reports another seizure this am broken with IV ativan. She has been stable otherwise. At bedside patient is sleepy but asymptomatic. She reports she has been asymptomatic with all her medications as she does not have insurance. Social se rvices consulted to assist with getting affordable medications and care. EEG has been ordered, patient transitioned to PO keppra at an increased dose. Continue observation with seizure precautions. 2/ patient seen at bedside she was sleeping during the medical interview. Nursing reported overall seizure episodes yesterday, that were preceded by hyperventilation. Discussed these findings with the patient's mother who was at bedside and she reports patient has had several of these hypoventilation epi sodes when she gets anxious or stressed out since her last seizure approximately 13 months ago. When her mother instruct her to slow her breathing down and relax she typically comes down with no seizure activity noted. This suggests she has an underlying anxiety disorder and that perhaps the seizures are not true generalized seizures but an anxiety attack. She has been started on hydroxyzine for the anxiety and oxcarbazepine has been added for breakthrough seizure. Patient would benefit from continuous EEG monitoring, have requested patient be transferred to a hospital with a in-house neuro hospitalists with continuous EEG capabilities. supervisor pipe joints to assist. Vitals and labs are relatively unremarkable. REVIEW OF SYSTEMS 12-point ROS reviewed with patient. All pertinent positives mentioned above, otherwise negative, noncontributory, or non-pertinent. PHYSICAL EXAM GENERAL APPEARANCE: The patient is awake, alert, and oriented, in no acute cardiopulmonary distress. NEUROLOGICAL: Cranial nerves II-XII grossly intact. Motor is 5/5 in bilateral upper and lower extremities proximal to distal. No sensory deficits. HEENT: Face is symmetric. Pupils are equal and reactive. Extraocular movements are intact. NECK: Supple. No JVD. No thyromegaly. No submental, submandibular, pre- /postauricular, occipital or supraclavicular lymphadenopathy. CHEST: Normal chest expansion. No Telemetry. LUNGS: Absence of any rales, rhonchi or any wheezing. CARDIOVASCULAR: Regular. S1 and S2 normal. No appreciable rubs, murmurs or gallops. ABDOMEN: Obese. Soft, nontender, and nondistended. There is no rebound, voluntary guarding, or rigidity. : Deferred. No Alexander. EXTREMITIES: Non-edematous and not cyanotic. No clubbing. Good capillary refill. SKIN: No skin breakdown. Vital Signs (last 8hr) Date Time Temp Pulse Resp B/P (MAP) Pulse Ox O2 Delivery O2 Flow Rate FiO2 09/25/24 12:00 98.2 113 18 104/54 98 Room Air 09/25/24 08:00 99 Room Air* 0 21 09/25/24 08:00 97.9 83 18 119/72 99 Room Air LABS: Laboratory: Test 09/25/24 15:11 09/25/24 04:39 09/24/24 13:37 09/24/24 09:43 Range/Units Whole Blood Glucose 222 H 70-110 MG/DL White Blood Count 5.6 4.8-10.8 K/uL Red Blood Count 4.77 4.00-5.50 MIL/uL Hemoglobin 12.8 12.0-16.0 g/dL Hematocrit 40.1 36-48 % Mean Corpuscular Volume 84.1 79-99 fL Mean Corpuscular Hemoglobin 26.8 L 27.0-33.0 pg Mean Corpuscular Hemoglobin Concent 31.9 L 32.0-36.0 g/dL Red Cell Distribution Width 13.2 11.0-15.5 % Platelet Count 149 130-400 K/uL Mean Platelet Volume 13.7 H 7.5-10.5 fL Immature Granulocyte % (Auto) 0.5 0-1 % Neutrophils (%) (Auto) 59.9 40.0-77.0 % Lymphocytes (%) (Auto) 30.1 21.0-51.0 % Monocytes (%) (Auto) 7.7 3.0-13.0 % Eosinophils (%) (Auto) 1.6 0.0-8.0 % Basophils (%) (Auto) 0.2 0.0-5.0 % Neutrophils # (Auto) 3.4 1.8-7.7 K/uL Lymphocytes # (Auto) 1.7 1.0-4.8 K/uL Monocytes # (Auto) 0.4 0.1-1.0 K/uL Eosinophils # (Auto) 0.09 0.00-0.70 K/uL Basophils # (Auto) 0.01 0.00-0.20 K/uL Absolute Immature Granulocyte (auto 0.03 0-1 K/uL Nucleated Red Blood Cells 0.0 0.0-0.19 % Sodium Level 142 136-145 mmol/L Potassium Level 3.4 L 3.5-5.1 mmol/L Chloride Level 107 101-111 mmol/L Carbon Dioxide Level 29 21-32 mmol/L Blood Urea Nitrogen 7 7-18 mg/dL Creatinine 0.7 0.5-1.0 mg/dL Glomerular Filtration Rate Calc 122 >90 mL/min Random Glucose 192 H 70-105 mg/dL Total Calcium 8.0 L 8.5-10.1 mg/dL Phosphorus Level 3.3 2.5-4.9 mg/dL Magnesium Level 1.90 1.80-2.40 mg/dL Total Bilirubin 0.8 0.2-1.0 mg/dL Aspartate Amino Transf (AST/SGOT) 51 H 10-37 U/L Alanine Aminotransferase (ALT/SGPT) 152 H 12-78 U/L Alkaline Phosphatase 94 50-136 U/L Total Protein 6.1 6.0-8.3 g/dL Albumin 2.8 L 3.5-5.0 g/dL HIV (1&2) Antibody Non-Reactive Negative HIV P24 Antigen, Qualitative Non-Reactive Negative Lactic Acid Level 1.7 0.8-2.5 mmol/L Test 09/24/24 06:33 09/23/24 22:30 09/23/24 21:25 09/23/24 19:23 Range/Units Hemoglobin A1c 10.7 H 4.0-6.0 % Estimated Average Glucose (eAG) 260 H 70-126 mg/dL Total Creatine Kinase 38 21-232 U/L Thyroid Stimulating Hormone (TSH) 1.59 0.36-3.74 uIU/mL Influenza Type A Antigen Negative For Type A NEGATIVE Influenza Type B Antigen Negative For Type B NEGATIVE SARS-CoV-2, RNA, NAAT NEGATIVE SARS CoV-2 NEGATIVE Urine Color LIGHT-YELLOW YELLOW Urine Appearance CLEAR CLEAR Urine pH 5.5 5.0-8.0 Urine Specific [place] 1.039 H 1.001-1.031 Urine Protein NEGATIVE NEGATIVE mg/dL Urine Glucose (UA) >=1000 H NEGATIVE mg/dL Urine Ketones 5 H NEGATIVE mg/dL Urine Occult Blood NEGATIVE NEGATIVE Urine Nitrate NEGATIVE NEGATIVE Urine Bilirubin NEGATIVE NEGATIVE mg/dL Urine Urobilinogen 0.2 0.2-1.0 mg/dL Urine Leukocyte Esterase NEGATIVE NEGATIVE Pascual/uL Urine RBC 2-5 H 0-1 /HPF Urine WBC 0-1 0-1 /HPF Urine Bacteria None None Seen /HPF Urine Opiates Screen NEGATIVE NEGATIVE Urine Barbiturates Screen NEGATIVE NEGATIVE Urine Phencyclidine Screen NEGATIVE NEGATIVE Urine Amphetamines Screen NEGATIVE NEGATIVE Urine Benzodiazepines Screen NEGATIVE NEGATIVE Urine Cocaine Screen NEGATIVE NEGATIVE Urine Marijuana (THC) Screen NEGATIVE NEGATIVE Serum Test, Qualitative NEGATIVE NEGATIVE Current Medications Medications (Trade) Dose Ordered Sig/Pilar Route PRN Reason Start Time Stop Time Status Last Admin Dose Admin Acetaminophen (TYLenol 325MG TAB) 650 mg Q6H PRN PO FEVER/MILD PAIN LEVEL 1-3 09/23/24 22:30 10/23/24 22:29 Acetaminophen (TYLenol 650MG SUPPOSITORY) 650 mg Q6H PRN RC FEVER / MILD PAIN 1-3 IF NPO 09/23/24 22:30 10/23/24 22:29 Dextrose (D50w) 50 ml AD PRN IV HYPOGLYCEMIA PROTOCOL 09/23/24 22:30 10/23/24 22:29 Docusate Sodium (COLace 100MG CAP) 100 mg BID PRN PO c 09/23/24 22:30 10/23/24 22:29 Enoxaparin Sodium (Lovenox) 30 mg DAILY SQ 09/24/24 09:00 10/24/24 08:59 09/25/24 08:32 30 MG Glucagon (Glucagon 1mg Kit) 1 mg AD PRN IM HYPOGLYCEMIA PROTOCOL 09/23/24 22:30 10/23/24 22:29 Hydralazine HCl (APRESOLine 20MG INJ) 10 mg Q2H PRN IV SBP GREATER THAN 160 09/23/24 22:30 10/23/24 22:29 Hydroxyzine HCl (ATArax 25MG TAB) 25 mg TID PO 09/25/24 09:00 10/25/24 07:59 09/25/24 14:10 25 MG Hydroxyzine HCl (ATArax 25MG TAB) 25 mg TID PRN PO ITCHING 09/25/24 08:00 09/25/24 08:16 DC Insulin Glargine (LANtus 100 UNITS/ML 10 ML VIAL) 10 units BID@0730,2100 SQ 09/24/24 09:30 10/24/24 09:29 09/25/24 08:40 10 UNITS Insulin Human Regular (humuLIN R 100 UNIT/ML 3ML) INSULIN SLIDING SCAL... ACHS SQ 09/24/24 07:30 10/24/24 07:29 09/25/24 12:12 10 UNIT Lactulose (Constulose 20gm/ 30ml Udcup) 20 gm Q6H PRN PO CONSTIPATION 09/23/24 22:30 10/23/24 22:29 Levetiracetam (kepPRA 500 MG TABLET) 1,000 mg BID PO 09/24/24 21:00 09/24/24 12:07 DC Levetiracetam (kepPRA 500 MG TABLET) 1,500 mg BID PO 09/24/24 21:00 10/24/24 20:59 09/25/24 08:32 1,500 MG Levetiracetam 1500 mg/Sodium Chloride 100 ml @ 400 mls/hr Q8H6 IV 09/23/24 22:00 09/24/24 09:07 DC 09/24/24 05:47 400 MLS/HR Lorazepam (AtiVAN) 1 mg Q1H PRN IVP SEIZURES 09/23/24 22:30 09/30/24 22:29 09/25/24 08:57 1 MG Magnesium Sulfate 50 ml @ 0 mls/hr PROTOCOL PRN IV MAGNESIUM PROTOCOL 09/23/24 22:30 10/23/24 22:29 09/24/24 17:53 1.6 MLS/HR Ondansetron HCl (zoFRAN 4MG INJ) 4 mg Q6H PRN IVP NAUSEA/VOMITING 09/23/24 22:30 10/23/24 22:29 Oxcarbazepine (TRILeptAL) 300 mg BID PO 09/25/24 09:00 10/25/24 08:59 09/25/24 08:32 300 MG Pantoprazole Sodium (PROTonix 40MG TAB) 40 mg DAILY PO 09/24/24 09:00 10/24/24 08:59 09/25/24 08:32 40 MG Potassium Chloride 100 ml @ 100 mls/hr AD PRN IV POTASSIUM PROTOCOL 09/23/24 22:30 10/23/24 22:29 Potassium Chloride (K-Dur/Klor-Con 20meq) 20 meq AD PRN PO POTASSIUM PROTOCOL 09/23/24 22:30 10/23/24 22:29 Potassium Chloride (KCl 10% Elixir 20meq/15ml) 20 meq AD PRN PO POTASSIUM PROTOCOL 09/23/24 22:30 10/23/24 22:29 09/24/24 17:53 20 MEQ Sodium Chloride 1,000 ml @ 100 mls/hr Q10H IV 09/23/24 22:30 10/23/24 22:29 09/24/24 08:38 100 MLS/HR Temazepam (restORIL 15 MG CAP) 15 mg HS PRN PO INSOMNIA/SLEEP 09/23/24 22:30 10/23/24 22:29 DIAGNOSTICS / RADIOLOGY: [ ] ASSESSMENT: Recurrent seizure, POA currently not taking antiseizure medication Uncontrolled diabetes with hyperglycemia, POA Hypertension, P Hyponatremia, POA Ketonuria, POA Anxiety Depression Obesity, BMI 29 Medication noncompliance PLAN: Admit patient to medical floor with telemetry monitoring and seizure precaution. Continue Keppra 1500 mg PO BID Start oxcarbazepine 300mg BID Start hydroxyzine 25mg TID for anxiety Continue NS at 100 mL an hour. Follow up with Neurology upon discharge for seizure monitoring, no neurologist in-house. Education done on obtaining a family doctor for medical management of chronic conditions. EEG pending, will follow up supervisor special services consulted to assist with medications and PCP care Supplemental oxygen as needed to keep SpO2 equal to greater than 92%. P.r.n. medications for: Pain management, fever, hypertension, nausea, vomiting, constipation. Glucometer checks a.c. and HS with insulin regular sliding scale coverage as needed per protocol. Disposition: pending improvement in clinical status, EEG, resolution of seizures, transfer to higher level of care INDIO ZHOU MD Sep 25, 2024 15:55
[2024-09-25 16:00] VITALS: BP 103/71; PULSE 101; RESP 18; TEMP 98.4
--- NOTE | 2024-09-25 18:36 | NUR ---
TRANSFER CALL BACK FROM [facility] WITH A DENIAL FOR NO CONTINUES EEG SERVICE. ROYA THURMAN
[2024-09-25 20:00] VITALS: BP 90/56; PULSE 96; RESP 20; TEMP 98.4; O2SAT 98
--- NOTE | 2024-09-25 23:54 | NUR ---
SPOKE WITH BRET AT [facility]. TRANSFER REQUEST INITIATED AND CLINICAL INFORMATION FAXED.
[2024-09-26] VITALS (30 sets, daily range): BP systolic 76–118; BP diastolic 33–78; PULSE 72–114; RESP 14–20; TEMP 97.4–98.8; O2SAT 99–100
--- NOTE | 2024-09-26 00:48 | NUR ---
RECEIVED CALL FROM BRET AT [facility] WHO STATES THEY CAN NOT ACCOMMODATE PT AT THIS TIME DUE TO BED AVAILABILITY BUT ARE ABLE TO PLACE HER ON A WAITING LIST.
--- NOTE | 2024-09-26 06:13 | NUR ---
SPOKE WITH INTAKE NURSE AT [facility] TO INITIATE TRANSFER REQUEST. PT WAS DECLINED THEY DO NOT HAVE CONTINUOUS EEG AVAILABLE AND TRANSFER THEIR OWN PATIENTS TO [place] OR [place] WHEN THIS IS NEEDED.
[2024-09-26 06:18] LABS: BASOPHILS # (AUTO) 0.01 K/uL (0.00-0.20); BASOPHILS % (AUTO) 0.2 % (0.0-5.0); EOSINOPHILS % (AUTO) 1.9 % (0.0-8.0); HEMATOCRIT 41.2 % (36-48); IMMATURE GRANULOCYTE ABSOLUTE 0.02 K/uL (0-1); LYMPHOCYTES # (AUTO) 1.7 K/uL (1.0-4.8); LYMPHOCYTES % (AUTO) 31.8 % (21.0-51.0); MEAN CORPUSCULAR HEMOGLOBIN 27.1 pg (27.0-33.0); MEAN CORPUSCULAR HGB CONC 31.8 g/dL (32.0-36.0); MEAN CORPUSCULAR VOLUME 85.1 fL (79-99); MONOCYTES # (AUTO) 0.5 K/uL (0.1-1.0); MONOCYTES % (AUTO) 9.1 % (3.0-13.0); NEUTROPHILS % (AUTO) 56.6 % (40.0-77.0); PLATELET COUNT (AUTO) 135 K/uL (130-400); RED BLOOD CELL COUNT(AUTO) 4.84 MIL/uL (4.00-5.50); RED CELL DISTRIBUTION WIDTH 13.3 % (11.0-15.5); WHITE BLOOD COUNT (AUTO) 5.3 K/uL (4.8-10.8)
[2024-09-26 06:31] LABS: ALBUMIN 2.8 g/dL (3.5-5.0); BILIRUBIN,TOTAL 0.6 mg/dL (0.2-1.0); CREATININE 0.8 mg/dL (0.5-1.0); POTASSIUM 3.8 mmol/L (3.5-5.1); TOTAL PROTEIN, SERUM 6.4 g/dL (6.0-8.3)
--- NOTE | 2024-09-26 12:12 | NUR ---
EEG 0930 RECOVERY ROOM RNSTACEY, REQUESTING CLARIFICATION ON EEG ORDER. STATED SINCE THERE'S A TRANSFER ORDER FOR PATIENT TO RECV CONTINUOS EEG, SHE WOULD NEED CHANGE ON CURRENT EEG ORDER REFLECTING CONTINUOS. EXPLAINED DRRodrick REQUESTING EEG TO BE DONE ORDERED PRIOR TO PATIENT BEING TRANSFERRED. STATED SPOKE WITH DIRECTOR AND ARE IN AGREEMENT FOR ORDER TO BE CHANGED TO REFLECT CONTINUOS. [address] ZHOU OR RECOVERY ROOM RN'S REQUEST. PER DR. ZHOU, CONTINOUS EEG WAS ONLY A SUGGESTION PER HIS NOTES, REQUESTING FOR TECH TO TRY FOR AN EEG UNTIL THE PATIENT IS TRANSFERRED. VOICED UNDERSTANDING. CONTACTED RECOVERY ROOM RN TO EXT. 1669 REQUESTED. NO ANSWER. LEFT MESSAGE FOR HER TO CALL ME BACK. PENDING CALLBACK. 1200 SECOND ATTEMPT TO CONTACT RECOVERY ROOM RN. LEFT MESSAGE WITH [employer] FOR HER TO CALL ME BACK FOR ORDER CLARIFICATION. PENDING CALLBACK.
[2024-09-26] MEDS: LORazepam 2 MG/ML 1 ML VIAL IVP ONE (13:35)
--- NOTE | 2024-09-26 13:52 | NUR ---
RAPID RESPONSE Sw present for rapid response code called. Pt's mother Reema Jeanu called and Dr Fowler was able to update mother on pt's condition and need for transfer.
[2024-09-26] MEDS ORDERED: PHARMACY COMMUNICATION MISC SCH (14:00)
[2024-09-26] MEDS: FOSPHENYTOIN SODIUM IJ ONE (14:00)
[2024-09-26] MEDS: [UNRECOGNIZED DRUG - OTHER] IJ ONE (14:00)
[2024-09-26 14:45] LABS: HIV 1&2 ANTIBODY Non-Reactive (Negative); HIV-1 p24 Antigen Non-Reactive (Negative)
[2024-09-26] MEDS: LORazepam 2 MG/ML 1 ML VIAL IM PRN (14:45)
--- NOTE | 2024-09-26 15:07 | NUR ---
COULD NOT PERFORM EEG DUE TO PATIENT SEIZING/RAPID RESPONSE CALLED Addendum: 09/26/24 at 1513 by TARIK SHETH Amended: Links added.
--- NOTE | 2024-09-26 15:29 | NUR ---
TRANSFER 1502 REPORT GIVEN TO [facility] FOR PATIENT TO BE TRANSFERRED TO ICU DUE TO RECURRENT SEIZURES, PER DR. ZHOU. PATIENT'S HISTORY AND MD ORDERS REPORTED AND PROVIDED TO REESE. VOICED UNDERSTANDING.
[2024-09-26] MEDS: LACTATED RINGERS 1000ML IV STA (16:03)
--- NOTE | 2024-09-26 16:19 | HMCIMG ---
Exam Type: MR BRAIN WWO CON Clinical Information: SEIZURES Comparison: None Technique: T1 weighed sagittal, T1-weighted axial, T2-weighted axial, diffusion, apparent diffusion, exponential diffusion weighted axial, T2-weighted FLAIR sagittal, coronal and axial images of the brain. Findings: The examination is unremarkable. Taylor-white matter junction is preserved. No intra or extra axial lesions or fluid collections are seen. There are no infarcts. There are no hemorrhages. Signal intensity is normal throughout the periventricular white matter locations. The orbital contents and structures of the posterior fossa are intact. The sella and its contents and the structures of the skull base are intact as well. Impression: Normal exam without gadolinium.
[2024-09-26 16:23] LABS: ABG HCO3 24.7 mmol/L (21.0-28.0); ABG OXYGEN SATURATION 98.5 % (94.0-98.0); ABG PCO2 40 mmHg (32-45); ABG PH 7.405 (7.350-7.450); PO2, ARTERIAL BG 126.5 mmHg (83.0-108.0); VENT MODE, BG NC 2L (ROOM AIR)
[2024-09-26] MEDS ORDERED: GADOTERATE MEGLUMINE 10 MMOL/20 ML VIAL IV ONE (16:48)
--- NOTE | 2024-09-26 17:28 | PN ---
[facility] PROGRESS NOTE Date of Service: Sep 26, 2024 Time of Service: 17:20 SUBJECTIVE: 2/3 Pt seen at bedside, no acute events overnight. Nursing reports another seizure this am broken with IV ativan. She has been stable otherwise. At bedside patient is sleepy but asymptomatic. She reports she has been asymptomatic with all her medications as she does not have insurance. Social se rvices consulted to assist with getting affordable medications and care. EEG has been ordered, patient transitioned to PO keppra at an increased dose. Continue observation with seizure precautions. 2/ patient seen at bedside she was sleeping during the medical interview. Nursing reported overall seizure episodes yesterday, that were preceded by hyperventilation. Discussed these findings with the patient's mother who was at bedside and she reports patient has had several of these hypoventilation epi sodes when she gets anxious or stressed out since her last seizure approximately 13 months ago. When her mother instruct her to slow her breathing down and relax she typically comes down with no seizure activity noted. This suggests she has an underlying anxiety disorder and that perhaps the seizures are not true generalized seizures but an anxiety attack. She has been started on hydroxyzine for the anxiety and oxcarbazepine has been added for breakthrough seizure. Patient would benefit from continuous EEG monitoring, have requested patient be transferred to a hospital with a in-house neuro hospitalists with continuous EEG capabilities. supervisor cleaning and annealing to assist. Vitals and labs are relatively unremarkable. 2/5 patient seen at bedside, no acute events overnight. This afternoon she began having breakthrough seizure-like episodes with hyperventilation and rhythmic body movements. He was also noted to be crying. She was given multiple injections of IV Ativan and was started on IV loading dose of IV fo sphenytoin. An MRI with and without contrast will be ordered to assess for any tumors or cranial abnormalities. Patient pending transfer to hospital with neuro hospitalist services for further workup. She will be transferred to the ICU and started on Precedex. REVIEW OF SYSTEMS 12-point ROS reviewed with patient. All pertinent positives mentioned above, otherwise negative, noncontributory, or non-pertinent. PHYSICAL EXAM GENERAL APPEARANCE: The patient is awake, alert, and oriented, in no acute cardiopulmonary distress. NEUROLOGICAL: Cranial nerves II-XII grossly intact. Motor is 5/5 in bilateral upper and lower extremities proximal to distal. No sensory deficits. HEENT: Face is symmetric. Pupils are equal and reactive. Extraocular movements are intact. NECK: Supple. No JVD. No thyromegaly. No submental, submandibular, pre- /postauricular, occipital or supraclavicular lymphadenopathy. CHEST: Normal chest expansion. No Telemetry. LUNGS: Absence of any rales, rhonchi or any wheezing. CARDIOVASCULAR: Regular. S1 and S2 normal. No appreciable rubs, murmurs or gallops. ABDOMEN: Obese. Soft, nontender, and nondistended. There is no rebound, voluntary guarding, or rigidity. : Deferred. No Alexander. EXTREMITIES: Non-edematous and not cyanotic. No clubbing. Good capillary refill. SKIN: No skin breakdown. Vital Signs (last 8hr) Date Time Temp Pulse Resp B/P (MAP) Pulse Ox O2 Delivery O2 Flow Rate FiO2 09/26/24 16:35 100 Nasal Cannula* 2 28 09/26/24 15:46 98.8 96 15 114/63 100 Nasal Cannula 2.0 09/26/24 13:35 110 N/Cannula Low lpm 4.0 36 09/26/24 12:00 98.4 86 19 94/60 97 Room Air LABS: Laboratory: Test 09/26/24 16:21 09/26/24 16:08 09/26/24 13:53 09/26/24 05:50 Range/Units Blood Gas Specimen Type Arterial Arterial Blood pH 7.405 7.350-7.450 Arterial Blood Partial Pressure CO2 40 32-45 mmHg Arterial Blood Partial Pressure O2 126.5 H 83.0-108.0 mmHg Arterial Blood HCO3 24.7 21.0-28.0 mmol/L Arterial Blood Oxygen Saturation 98.5 H 94.0-98.0 % Arterial Blood Base Excess 0.0 -2.0-3.0 mmol/L Blood Gas Temperature 37.0 35.5-37.0 CELSIUS Blood Gas Flow-by 2.00 0.00-15.00 L/min Blood Gas Vent Mode NC 2L ROOM AIR FiO2 28.0 % Blood Gas Specimen Comment JEANCARLOS, CUCA LEIGH Whole Blood Glucose 159 H 70-110 MG/DL Lactic Acid Level 3.6 H 0.8-2.5 mmol/L Total Creatine Kinase 42 21-232 U/L Procalcitonin < 0.05 L 0.05-0.5 ng/mL HIV (1&2) Antibody Non-Reactive Negative HIV P24 Antigen, Qualitative Non-Reactive Negative White Blood Count 5.3 4.8-10.8 K/uL Red Blood Count 4.84 4.00-5.50 MIL/uL Hemoglobin 13.1 12.0-16.0 g/dL Hematocrit 41.2 36-48 % Mean Corpuscular Volume 85.1 79-99 fL Mean Corpuscular Hemoglobin 27.1 27.0-33.0 pg Mean Corpuscular Hemoglobin Concent 31.8 L 32.0-36.0 g/dL Red Cell Distribution Width 13.3 11.0-15.5 % Platelet Count 135 130-400 K/uL Mean Platelet Volume 13.4 H 7.5-10.5 fL Immature Granulocyte % (Auto) 0.4 0-1 % Neutrophils (%) (Auto) 56.6 40.0-77.0 % Lymphocytes (%) (Auto) 31.8 21.0-51.0 % Monocytes (%) (Auto) 9.1 3.0-13.0 % Eosinophils (%) (Auto) 1.9 0.0-8.0 % Basophils (%) (Auto) 0.2 0.0-5.0 % Neutrophils # (Auto) 3.0 1.8-7.7 K/uL Lymphocytes # (Auto) 1.7 1.0-4.8 K/uL Monocytes # (Auto) 0.5 0.1-1.0 K/uL Eosinophils # (Auto) 0.10 0.00-0.70 K/uL Basophils # (Auto) 0.01 0.00-0.20 K/uL Absolute Immature Granulocyte (auto 0.02 0-1 K/uL Nucleated Red Blood Cells 0.0 0.0-0.19 % Sodium Level 142 136-145 mmol/L Potassium Level 3.8 3.5-5.1 mmol/L Chloride Level 107 101-111 mmol/L Carbon Dioxide Level 27 21-32 mmol/L Blood Urea Nitrogen 13 7-18 mg/dL Creatinine 0.8 0.5-1.0 mg/dL Glomerular Filtration Rate Calc 104 >90 mL/min Random Glucose 260 H 70-105 mg/dL Total Calcium 8.4 L 8.5-10.1 mg/dL Total Bilirubin 0.6 0.2-1.0 mg/dL Aspartate Amino Transf (AST/SGOT) 51 H 10-37 U/L Alanine Aminotransferase (ALT/SGPT) 144 H 12-78 U/L Alkaline Phosphatase 96 50-136 U/L Total Protein 6.4 6.0-8.3 g/dL Albumin 2.8 L 3.5-5.0 g/dL Test 09/25/24 04:39 Range/Units Phosphorus Level 3.3 2.5-4.9 mg/dL Magnesium Level 1.90 1.80-2.40 mg/dL Current Medications Medications (Trade) Dose Ordered Sig/Pilar Route PRN Reason Start Time Stop Time Status Last Admin Dose Admin Acetaminophen (TYLenol 325MG TAB) 650 mg Q6H PRN PO FEVER/MILD PAIN LEVEL 1-3 09/23/24 22:30 10/23/24 22:29 Acetaminophen (TYLenol 650MG SUPPOSITORY) 650 mg Q6H PRN RC FEVER / MILD PAIN 1-3 IF NPO 09/23/24 22:30 10/23/24 22:29 Dexmedetomidine/ Sodium Chloride (PRECEdex 200MCG/ 50ML-NS) 200 mcg PROTOCOL IV 09/26/24 15:00 10/26/24 14:59 Dextrose (D50w) 50 ml AD PRN IV HYPOGLYCEMIA PROTOCOL 09/23/24 22:30 10/23/24 22:29 Docusate Sodium (COLace 100MG CAP) 100 mg BID PRN PO c 09/23/24 22:30 10/23/24 22:29 Enoxaparin Sodium (Lovenox) 30 mg DAILY SQ 09/24/24 09:00 10/24/24 08:59 09/26/24 08:03 30 MG Glucagon (Glucagon 1mg Kit) 1 mg AD PRN IM HYPOGLYCEMIA PROTOCOL 09/23/24 22:30 10/23/24 22:29 Hydralazine HCl (APRESOLine 20MG INJ) 10 mg Q2H PRN IV SBP GREATER THAN 160 09/23/24 22:30 10/23/24 22:29 Hydroxyzine HCl (ATArax 25MG TAB) 25 mg TID PO 09/25/24 09:00 10/25/24 07:59 09/26/24 08:04 25 MG Hydroxyzine HCl (ATArax 25MG TAB) 25 mg TID PRN PO ITCHING 09/25/24 08:00 09/25/24 08:16 DC Insulin Glargine (LANtus 100 UNITS/ML 10 ML VIAL) 10 units BID@0730,2100 SQ 09/24/24 09:30 10/24/24 09:29 09/26/24 08:02 10 UNITS Insulin Human Regular (humuLIN R 100 UNIT/ML 3ML) INSULIN SLIDING SCAL... ACHS SQ 09/24/24 07:30 10/24/24 07:29 09/26/24 12:27 10 UNIT Lactated Ringer's (Lactated Ringers 1000ml) 1,000 ml BOLUS STAT IV 09/26/24 14:57 09/26/24 15:05 DC 09/26/24 16:03 1,000 ML Lactulose (Constulose 20gm/ 30ml Udcup) 20 gm Q6H PRN PO CONSTIPATION 09/23/24 22:30 10/23/24 22:29 Levetiracetam (kepPRA 500 MG TABLET) 1,000 mg BID PO 09/24/24 21:00 09/24/24 12:07 DC Levetiracetam (kepPRA 500 MG TABLET) 1,500 mg BID PO 09/24/24 21:00 10/24/24 20:59 09/26/24 08:03 1,500 MG Levetiracetam 1500 mg/Sodium Chloride 100 ml @ 400 mls/hr Q8H6 IV 09/23/24 22:00 09/24/24 09:07 DC 09/24/24 05:47 400 MLS/HR Lorazepam (AtiVAN) 1 mg Q1H PRN IVP SEIZURES 09/23/24 22:30 09/30/24 22:29 09/26/24 13:38 1 MG Lorazepam (AtiVAN) 2 mg Q5MIN PRN IM SEIZURES 09/26/24 15:00 10/03/24 14:59 09/26/24 15:11 2 MG Magnesium Sulfate 50 ml @ 0 mls/hr PROTOCOL PRN IV MAGNESIUM PROTOCOL 09/23/24 22:30 10/23/24 22:29 09/24/24 17:53 1.6 MLS/HR Ondansetron HCl (zoFRAN 4MG INJ) 4 mg Q6H PRN IVP NAUSEA/VOMITING 09/23/24 22:30 10/23/24 22:29 Oxcarbazepine (TRILeptAL) 300 mg BID PO 09/25/24 09:00 10/25/24 08:59 09/26/24 08:03 300 MG Pantoprazole Sodium (PROTonix 40MG TAB) 40 mg DAILY PO 09/24/24 09:00 10/24/24 08:59 09/26/24 08:03 40 MG Pharmacy Profile Note (Pharmacy Communication) 1 each ONCE MISC 09/26/24 14:00 09/26/24 13:47 DC Potassium Chloride 100 ml @ 100 mls/hr AD PRN IV POTASSIUM PROTOCOL 09/23/24 22:30 10/23/24 22:29 Potassium Chloride (K-Dur/Klor-Con 20meq) 20 meq AD PRN PO POTASSIUM PROTOCOL 09/23/24 22:30 10/23/24 22:29 Potassium Chloride (KCl 10% Elixir 20meq/15ml) 20 meq AD PRN PO POTASSIUM PROTOCOL 09/23/24 22:30 10/23/24 22:29 09/25/24 18:17 20 MEQ Sodium Chloride 1,000 ml @ 100 mls/hr Q10H IV 09/23/24 22:30 10/23/24 22:29 09/25/24 16:35 100 MLS/HR Temazepam (restORIL 15 MG CAP) 15 mg HS PRN PO INSOMNIA/SLEEP 09/23/24 22:30 10/23/24 22:29 DIAGNOSTICS / RADIOLOGY: [ ] ASSESSMENT: Recurrent seizure, POA currently not taking antiseizure medication Uncontrolled diabetes with hyperglycemia, POA Hypertension, P Hyponatremia, POA Ketonuria, POA Anxiety Depression Obesity, BMI 29 Medication noncompliance PLAN: Admit patient to medical floor with telemetry monitoring and seizure precaution. Continue Keppra 1500 mg PO BID Continue oxcarbazepine 300mg BID Conitnue hydroxyzine 25mg TID for anxiety Transfer to ICU and start precedex Continue NS at 100 mL an hour. Follow up with Neurology upon discharge for seizure monitoring, no neurologist in-house. Education done on obtaining a family doctor for medical management of chronic conditions. EEG pending, will follow up hr shared services consultant consulted to assist with medications and PCP care Supplemental oxygen as needed to keep SpO2 equal to greater than 92%. P.r.n. medications for: Pain management, fever, hypertension, nausea, vomiting, constipation. Glucometer checks a.c. and HS with insulin regular sliding scale coverage as needed per protocol. Disposition: pending improvement in clinical status, resolution of seizures, transfer to higher level of care INDIO ZHOU MD Sep 26, 2024 17:28
--- NOTE | 2024-09-26 19:45 | NUR ---
Seizure Patient had approximate 2 min seizure. IV lorazepam administered. Patient lethargic and hard to arouse; extremities reactive to painful stimuli. Pupils 4 sluggish and reactive to light. Breaths are even and pt on 2 lpm nasal cannula saturating 100% on monitor.
[2024-09-26] MEDS: dexmedeTOMIDINE 200MCG/NS 50ML IV SCH (20:54)
--- NOTE | 2024-09-26 22:34 | CONS ---
[facility] CONSULTATION NOTE Date Patient Seen: Sep 26, 2024 Time of Visit: 22:34 Supervising Physician: Dr. Arellano Reason for Consultation: Seizures, critical care management Primary Care Physician: Attending group: [facility] hospitalist team. Outpatient Specialists: Inpatient Consults: [facility], critical Care team Param hally provider, neurologist Social service PROBLEM LIST: Recurrent seizures, POA, was not taking antiseizure medication POA Breakthrough seizures despite being on Keppra p.o. and Trilepta Uncontrolled diabetes with hyperglycemia, POA Hypertension, POA Hyponatremia, POA Ketonuria, POA Anxiety Depression Obesity, BMI 29 Medication noncompliance HPI: Ms. Knight is a 24-year-old female with a history of DM, HTN, obesity, anxiety, and seizures who presented to [facility] for evaluation of seizure activity. The patient has a history of seizures urine in 2022 and underwent an emergency in July 2023. She is supposed to be on Keppra 1000 mg p.o. twice a day but had not been taking the Keppra due to the Keppra getting her too sleepy. It was reported the patient had a seizure that lasted approximately2 minutes and was postictal and unresponsive prior to arrival. In route to ER, the patient had another seizure activity as she arrived which lasted approximately 2 minutes. ED provider witnessed the activity which was rhythmic shaking on one side mostly right. Patient then was responding by nodding and had tears rolling down her cheek. Per chart review, in the afternoon the patient began having breakthrough seizure like episodes with hyperventilation and rhythmic body movement. She was also noted to be crying. She was given multiple injections of IV Ativan and was started on IV loading dose of IV fosphenytoin. An MRI was done on 09/26/2024, impression: No acute intracranial bleed is seen.. The patient is pending a transfer to another hospital with Neurology Services for further workup. The patient was transferred to ICU and was started on Precedex. The patient was taken off of Precedex at 10:06 p.m. by RN due to patient became hypotensive map 50s. On the evening of 09/26/2024 [facility]IS critical care team was consulted. I went to assess the patient at bedside. The patient's breathing was even, unlabored, in no distress. No family member at bedside. Patient was obtunded, withdrew to pain. No attempt to open eyes or follow command. [facility] provider neurologist was consulted. RN spoke to tele neuro who reports that they requested the Keppra to be changed to a 1000 mg IV b.i.d. and continuous EEG. Addendum: 09/27/2024 at 03:44 a.m. [facility] called me directly to my cell. [facility] provider denied the patient due to no continuous EEG. I informed dope dry house operator of the denied. Multiple areas in the [place] have denied the patient either from no neurologist available or no beds available. cosmetics supervisor will continue to work on transferring the patient. PAST MEDICAL HX: see above PAST SURGICAL HX: , cholecystectomy SOCIAL HISTORY: No tobacco, ETOH, or illicit drug use Coded Allergies: codeine (Unverified Allergy, Severe, ANAPHYLAXIS, 11/07/23) REVIEW OF SYSTEMS: Unable to obtain ROS from patient due to patient obtunded PHYSICAL EXAM: GENERAL: Weak, awake oriented x 0 HEENT: EOMI, Sclera non icteric, moist mucosa NECK: Supple, no JVD, trachea midline LUNGS: Clear breath sounds bilaterally. No wheezes HEART: Regular rate and rhythm. Normal S1 and S2, without murmurs ABD: Abdomen obese, soft, nontender. Bowel sounds present EXT: No clubbing cyanosis or edema. NEURO: Obtunded, withdraws to painful stimuli. No attempt to open eyes and no attend to speak. Vital Signs (last 8hr) Date Time Temp Pulse Resp B/P (MAP) Pulse Ox O2 Delivery O2 Flow Rate FiO2 09/26/24 22:06 82 16 76/41 99 Nasal Cannula 2.0 09/26/24 22:00 83 16 80/39 99 Nasal Cannula 2.0 09/26/24 21:45 85 16 88/44 100 Nasal Cannula 2.0 09/26/24 21:30 94 18 89/46 100 Nasal Cannula 2.0 09/26/24 21:15 90 18 88/44 100 Nasal Cannula 2.0 09/26/24 21:00 93 15 104/56 100 Nasal Cannula 2.0 09/26/24 20:45 114 15 103/54 100 Nasal Cannula 2.0 09/26/24 20:30 97.3 85 18 107/57 100 Nasal Cannula 2.0 09/26/24 20:16 85 18 107/57 100 Nasal Cannula 2.0 09/26/24 20:15 93 18 103/57 100 Nasal Cannula 2.0 09/26/24 20:00 103 14 106/59 100 Nasal Cannula 2.0 09/26/24 19:45 98 16 110/78 100 Nasal Cannula 2.0 09/26/24 19:16 103 20 103/65 100 Nasal Cannula 2.0 09/26/24 19:15 100 Nasal Cannula* 2 28 09/26/24 16:35 100 Nasal Cannula* 2 28 09/26/24 15:46 98.8 96 15 114/63 100 Nasal Cannula 2.0 LABS: Hematology Labs: Test 09/26/24 05:50 Range/Units White Blood Count 5.3 4.8-10.8 K/uL Red Blood Count 4.84 4.00-5.50 MIL/uL Hemoglobin 13.1 12.0-16.0 g/dL Hematocrit 41.2 36-48 % Mean Corpuscular Volume 85.1 79-99 fL Mean Corpuscular Hemoglobin 27.1 27.0-33.0 pg Mean Corpuscular Hemoglobin Concent 31.8 L 32.0-36.0 g/dL Red Cell Distribution Width 13.3 11.0-15.5 % Platelet Count 135 130-400 K/uL Mean Platelet Volume 13.4 H 7.5-10.5 fL Immature Granulocyte % (Auto) 0.4 0-1 % Neutrophils (%) (Auto) 56.6 40.0-77.0 % Lymphocytes (%) (Auto) 31.8 21.0-51.0 % Monocytes (%) (Auto) 9.1 3.0-13.0 % Eosinophils (%) (Auto) 1.9 0.0-8.0 % Basophils (%) (Auto) 0.2 0.0-5.0 % Neutrophils # (Auto) 3.0 1.8-7.7 K/uL Lymphocytes # (Auto) 1.7 1.0-4.8 K/uL Monocytes # (Auto) 0.5 0.1-1.0 K/uL Eosinophils # (Auto) 0.10 0.00-0.70 K/uL Basophils # (Auto) 0.01 0.00-0.20 K/uL Absolute Immature Granulocyte (auto 0.02 0-1 K/uL Nucleated Red Blood Cells 0.0 0.0-0.19 % Chemistry Labs: Test 09/26/24 20:47 09/26/24 17:53 09/26/24 13:53 09/26/24 05:50 Range/Units Whole Blood Glucose 125 H 70-110 MG/DL Lactic Acid Level 1.4 0.8-2.5 mmol/L Total Creatine Kinase 42 21-232 U/L Procalcitonin < 0.05 L 0.05-0.5 ng/mL Sodium Level 142 136-145 mmol/L Potassium Level 3.8 3.5-5.1 mmol/L Chloride Level 107 101-111 mmol/L Carbon Dioxide Level 27 21-32 mmol/L Blood Urea Nitrogen 13 7-18 mg/dL Creatinine 0.8 0.5-1.0 mg/dL Glomerular Filtration Rate Calc 104 >90 mL/min Random Glucose 260 H 70-105 mg/dL Total Calcium 8.4 L 8.5-10.1 mg/dL Total Bilirubin 0.6 0.2-1.0 mg/dL Aspartate Amino Transf (AST/SGOT) 51 H 10-37 U/L Alanine Aminotransferase (ALT/SGPT) 144 H 12-78 U/L Alkaline Phosphatase 96 50-136 U/L Total Protein 6.4 6.0-8.3 g/dL Albumin 2.8 L 3.5-5.0 g/dL Test 09/25/24 04:39 Range/Units Phosphorus Level 3.3 2.5-4.9 mg/dL Magnesium Level 1.90 1.80-2.40 mg/dL DIAGNOSTICS / RADIOLOGY RESULTS: [ ] PLAN Patient was transferred to ICU for continuous cardiac monitoring, pulse oximetry monitoring, and for initiation of Precedex. Precedex was placed on hold by RN due to hypotension, MAP continuously below 60. Tele neuro was consulted. Obtain Keppra and Trileptal levels. Continue Trileptal, remaining tele neuro plan listed below on neurologist recommendations. Continue NS at 100 mL an hour. Social service was consulted for assistance of medications and PCP care. Supplemental oxygen as needed to keep SpO2 equal to greater than 92%. P.r.n. medications for: Pain management, nausea, vomiting, constipation, hypertension, fever. Glucometer checks a.c. and HS with insulin regular sliding scale per protocol. Vital signs per ICU protocol. Continue education on medication management and following up with PCP and Neurology upon discharge. BIS team we will follow tele neuro was recommendations: -Seizure precautions -CBC, CMP, LFT, thiamine, UA, urine drug screen, basic information on meta bolic workup, magnesium -chest x-ray -CT head without contrast. -EEG -LTEEG monitoring if the patient does not returned to baseline and continues to have breakthrough seizures. -Keppra 1 g IV b.i.d. -2 g IV magnesium sulfate for serum Mag <1.8, optimize other electrolytes. -avoid epileptogenic medications such as Wellbutrin, cefepime, ultram, quinolones, and imipenem -education on seizure precautions, including appropriate state law prohibition driving, avoiding height, tub/swimming pools and standing over open flames NEURO: Minimize central acting medications as possible. Fall Precautions. Well lighted room through the day and minimize interruptions through the night to prevent acute delirium. PULMONARY: Supplemental 02 as needed Titrate Fio2 to keep Spo2 > or = 90% DuoNebs and CPT as needed IS hourly while awake for pulmonary hygiene Out of bed to chair as tolerated VAP Bundle CARDIOVASCULAR: Follow hemodynamics. Titrate vasopressor to keep MAP >65 or systolic blood pressure >95mmHg GI & NUTRITION: Continue nutritional support Aspirations precautions Prokinetic agents and laxatives as needed KIDNEYS & ELECTROLYTES: Strict monitoring of intake and output Daily weights Avoid nephrotoxic agents Monitor electrolytes and replace as needed Goal urine output of 30mL/hr or 0.5mL/kg/hr ENDOCRINE: Maintain blood glucose between 100-180 at all times. Insulin sliding scale for blood glucose management INFECTIOUS DISEASE: Trend temperature. Greenberg-culture if febrile. HEMATOLOGY & COAGULATION: Monitor H&H. Keep Hgb > 7 Transfuse 1 unit of PRBC for Hgb < 7 Transfuse 1 pack of platelets of platelets < 20, 000 Watch for any signs and symptoms of bleeding SKIN: Pressure ulcer prevention per facility protocol Rehab: PT/OT Code Status: Full Resuscitation Disposition: [Transferred to ICU] Other: Total patient care time exceeds 60 minutes excluding all procedures. SANTINO HAIRSTON Sep 26, 2024 22:34
--- NOTE | 2024-09-26 23:51 | CONS ---
CONSULT NOTE: [place] Neuro Note # Demographics Consult Type: General Neurology Patient Location: Inpatient First Name: Maggie Xie Last Name: Eugene Date of : 2000 Age: 24 Gender: Female Facility: [facility] Time of Initial Page (Central Time): 09/26/2024 23:29 Time of Return Call (Central Time): 09/26/2024 23:29 # HPI History: 24yof with seiuzre disorder (on Keppra 1mg BID) who p/w breakthrough seizure. Has notbeen compliant with seizure meds and BGL 400s on arrival. Has had more seizures while in the hospital. # Exam Time of Exam (Central Time): 09/26/2024 23:47 Vitals: vital signs reviewed Mental Status: - sleepy - lethargic - disoriented to place - disoriented to person - disoriented to time Cranial Nerves: - normal - extra ocular movements intact Motor: diffusely weak in all extremities but withdraws to pain in all 4 extremities # Data MRI: - no acute ischemia - per radiologist read # Assessment Impression: Breakthrough seizures commonly resulting secondary to medication non-compliance, acute medical illness such as infection or metabolic abnormality, or sleep de privation. # Plan Labs: - CBC - comprehensive metabolic panel - thiamine - ua - urine drug screen Basic infectious and metabolic workup Magnesium Imaging: (urgency: STAT): - CT Head without contrast Diagnostic Test: - EEG LTEEG monitoring if she does not return to baseline and continues to have breakthrough seizure Medication: Continue Keppra 1g BID Other: - If patient has any neurological deterioration please call me back immediately - seizure precautions - Please check routine labs and studies to rule out infection or metabolic abnormality (CBC, BMP, LFTs, magnesium, UA, B-HCG, CXR) and treat as appropriate - Give 2 grams IV magnesium sulfate for serum magnesium <= 1.8, optimize other electrolytes - Avoid epileptogenic medications such as wellbutrin, cefepime, ultram, quinolones, and imipenum - Seizure precautions, including appropriate state law prohibiting driving, avoiding heights, tubs/swimming pools and standing over open flames # Logistics Attestation of consult completion: The patient is located at: [facility]. Facility staff participated in the visit. I performed this telemedicine visit from my offsite office utilizing interactive 2 way audio and visual telecommunication technology. Total time spent in telemedicine encounter: I spent 27 minutes reviewing clinical data and/or imaging, obtaining history, examining the patient, communicating with the onsite care team, and in preparation of this report. # Demographics First Name: aMggie Xie Last Name: Eugene Facility: [facility] ROSELYN HARRINGTON MD Sep 26, 2024 23:51
[2024-09-27] VITALS (63 sets, daily range): BP systolic 54–144; BP diastolic 33–94; PULSE 70–124; RESP 9–24; TEMP 97.6–98.7; O2SAT 97–100
--- NOTE | 2024-09-27 00:11 | NUR ---
SOC Neurology Consult Dr. Reardon evaluated pt through tele SOC. Per Dr. Reardon neurologist change PO keppra to Keppra 1000 mg IV BID. Recommending for pt to have continuous EEG monitoring. Pretty WINTER called and informed regarding continuous EEG monitoring. Per Pretty WINTER transfer has been initiated to [facility] in [place] for continuous EEG monitoring. Continuous EEG monitoring not available currently. Seema Rivas [employer] [employer] for benchmark has been made aware of recommendations and plans to transfer to another facility have been started.
--- NOTE | 2024-09-27 00:16 | NUR ---
TRANSFER: CALL PLACED TO [facility] FOR UPDATE ON ICU BED. PER [facility], STILL WAITING ON AN ICU BED.
[2024-09-27 00:49] LABS: BASOPHILS # (AUTO) 0.03 K/uL (0.00-0.20); BASOPHILS % (AUTO) 0.7 % (0.0-5.0); EOSINOPHILS # (AUTO) 0.07 K/uL (0.00-0.70); EOSINOPHILS % (AUTO) 1.5 % (0.0-8.0); IMMATURE GRANULOCYTE ABSOLUTE 0.02 K/uL (0-1); LYMPHOCYTES # (AUTO) 1.5 K/uL (1.0-4.8); MEAN CORPUSCULAR HEMOGLOBIN 27.3 pg (27.0-33.0); MEAN CORPUSCULAR HGB CONC 32.4 g/dL (32.0-36.0); MEAN CORPUSCULAR VOLUME 84.3 fL (79-99); MONOCYTES # (AUTO) 0.3 K/uL (0.1-1.0); NEUTROPHILS # (AUTO) 2.7 K/uL (1.8-7.7); NEUTROPHILS % (AUTO) 58.4 % (40.0-77.0); PLATELET COUNT (AUTO) 150 K/uL (130-400); RED BLOOD CELL COUNT(AUTO) 4.51 MIL/uL (4.00-5.50); RED CELL DISTRIBUTION WIDTH 13.2 % (11.0-15.5); WHITE BLOOD COUNT (AUTO) 4.6 K/uL (4.8-10.8)
[2024-09-27 00:51] LABS: ALBUMIN 2.7 g/dL (3.5-5.0); BILIRUBIN,TOTAL 0.8 mg/dL (0.2-1.0); CREATININE 0.6 mg/dL (0.5-1.0); POTASSIUM 3.3 mmol/L (3.5-5.1); TOTAL PROTEIN, SERUM 6.1 g/dL (6.0-8.3)
[2024-09-27] MEDS: PoTASSium chloRIDE 20MEQ ER 20 MEQ ERTAB PO PRN (01:35)
[2024-09-27 01:43] LABS: MAGNESIUM 1.4 mg/dL (1.80-2.40)
--- NOTE | 2024-09-27 04:03 | NUR ---
TRANSFER: RECEIVED CALL FROM [facility]; TRANSFER REQUEST DENIED D/T [facility] DOES NOT HAVE 24HR EEG MONITORING.
[2024-09-27] MEDS: leveTIRACEtam 500 MG/5 ML SD V 1,000 MG in 0.9%NACL 100ML 100 ML IV SCH (07:46)
[2024-09-27] MEDS ORDERED: leveTIRACEtam 500 MG/5 ML SD VIAL IV SCH (09:00)
--- NOTE | 2024-09-27 09:09 | CONS ---
CONSULT NOTE: [place] [facility] Neuro Note # Demographics Consult Type: General Neurology Patient Location: Inpatient First Name: Maggie Last Name: Eugene Date of : 2000 Age: 24 Gender: Female Facility: [facility] Time of Initial Page (Central Time): 09/27/2024 08:21 Time of Return Call (Central Time): 09/27/2024 08:21 # HPI History: per report from hospital provider: pt with h/o epilepsy and anxiety admitted with recurrent seizures in setting of medication noncompliance. pt seen by teleneuro last night. awaiting transfer for LT EEG monitoring. today morning had 2 more episodes of seizures. received ativan. Per RN, eyes were closed, each episode lasted 2 mins. She had stiffness and shaking of extremities and she was incontinent of urine and stool. She was not back to baseline between the seizure episodes. BG 189. afebrile. EEG couldn't be completed. Per chart review pt on trileptal 300 mg bid, keppra (1500 mg bid) and received forsphenytoin loading dose yesterday. # Exam Mental Status: - sleepy - lethargic Laying in bed with eyes closed. Very sleepy but arousible to repeated verbal st imulation by RN. Follows commands. Language: RENE due to been Sleepy. Nonverbal. Cranial Nerves: - no facial droop Gaze midline. Motor: Diffusely weak but Antigravity in all extremities. Cerebellar: RENE Reflexes: RENE # Data MRI: - no acute ischemia - preliminarily reviewed by me, please refer to radiology read for official reading MRI w/wo contrast negative on my review. # Assessment Impression: - Seizure - Altered Mental Status concern for status epilepticus. pt not currently seizing on my exam. AMS could be postictal vs effect of BDZ. Eyes reportedly been closed during the episodes also raises question about non- epileptic events. Will need LT EEG (continuous EEG monitoring) to guide further management # Plan Labs: - Ammonia - B12 - TSH - thiamine AED levels Diagnostic Test: - EEG Other: - If patient has any neurological deterioration please call me back immediately - seizure precautions Additional Recommendations: -transfer for LT EEG monitoring -continue keppra 1500 mg IV Q12h and trileptal 300 mg bid -Phenytoin 100 mg IV Q8h -check trileptal level and free phenytoin level. -No driving. -MRI brain w/wo contrast negative. recommend LP if episodes are epileptic and not responding to meds. -Attempted but unable to reach provider legal services professional back number provided. recs d/w bedside RN who will convey to primary team. Disposition: consider transfer to tertiary facility for higher level neurological care # Logistics Attestation of consult completion: The patient is located at: [facility]. Facility staff participated in the visit. I performed this telemedicine visit from my offsite office utilizing interactive 2 way audio and visual telecommunication technology. Total time spent in telemedicine encounter: I spent 30 minutes reviewing clinical data and/or imaging, obtaining history, examining the patient, communicating with the onsite care team, and in preparation of this report. # Demographics First Name: Maggie Last Name: Eugene Facility: [facility] NANCY ROSAS MD Sep 27, 2024 09:09
--- NOTE | 2024-09-27 09:36 | HMCIMG ---
Exam Type: CHEST 1VW Clinical Information: seizures r/o infectious process Comparison: None Findings: Ill-defined infiltrates of the right lower lobe are seen consistent with pneumonia. The heart is normal in size. The bony and soft tissue structures show no worrisome pathology. IMPRESSION: Findings consistent with pneumonia. Follow-up is advised.
[2024-09-27 10:48] LABS: CREATININE 0.8 mg/dL (0.5-1.0); POTASSIUM 4.1 mmol/L (3.5-5.1)
[2024-09-27] MEDS: OXcarbazepine 300 MG TAB PO SCH (11:54)
[2024-09-27] MEDS: AZITHROMYCIN 500MG+NS 250ML 250 ML IVPB SCH (11:55)
[2024-09-27 12:00] LABS: BASOPHILS # (AUTO) 0.01 K/uL (0.00-0.20); BASOPHILS % (AUTO) 0.2 % (0.0-5.0); EOSINOPHILS # (AUTO) 0.06 K/uL (0.00-0.70); EOSINOPHILS % (AUTO) 1.1 % (0.0-8.0); HEMATOCRIT 42.4 % (36-48); IMMATURE GRANULOCYTE ABSOLUTE 0.01 K/uL (0-1); LYMPHOCYTES # (AUTO) 1.1 K/uL (1.0-4.8); LYMPHOCYTES % (AUTO) 20.1 % (21.0-51.0); MEAN CORPUSCULAR HEMOGLOBIN 26.9 pg (27.0-33.0); MEAN CORPUSCULAR HGB CONC 32.3 g/dL (32.0-36.0); MEAN CORPUSCULAR VOLUME 83.1 fL (79-99); MONOCYTES # (AUTO) 0.3 K/uL (0.1-1.0); NEUTROPHILS # (AUTO) 3.9 K/uL (1.8-7.7); NEUTROPHILS % (AUTO) 72.4 % (40.0-77.0); PLATELET COUNT (AUTO) 149 K/uL (130-400); WHITE BLOOD COUNT (AUTO) 5.3 K/uL (4.8-10.8)
--- NOTE | 2024-09-27 12:00 | PN ---
[facility] PROGRESS NOTE Date of Service: Sep 27, 2024 Time of Service: 11:57 SUBJECTIVE: 2/3 Pt seen at bedside, no acute events overnight. Nursing reports another seizure this am broken with IV ativan. She has been stable otherwise. At bedside patient is sleepy but asymptomatic. She reports she has been asymptomatic with all her medications as she does not have insurance. Social se rvices consulted to assist with getting affordable medications and care. EEG has been ordered, patient transitioned to PO keppra at an increased dose. Continue observation with seizure precautions. 09/25 patient seen at bedside she was sleeping during the medical interview. Nursing reported overall seizure episodes yesterday, that were preceded by hyperventilation. Discussed these findings with the patient's mother who was at bedside and she reports patient has had several of these hypoventilation epi sodes when she gets anxious or stressed out since her last seizure approximately 13 months ago. When her mother instruct her to slow her breathing down and relax she typically comes down with no seizure activity noted. This suggests she has an underlying anxiety disorder and that perhaps the seizures are not true generalized seizures but an anxiety attack. She has been started on hydroxyzine for the anxiety and oxcarbazepine has been added for breakthrough seizure. Patient would benefit from continuous EEG monitoring, have requested patient be transferred to a hospital with a in-house neuro hospitalists with continuous EEG capabilities. supervisor quality control to assist. Vitals and labs are relatively unremarkable. 09/26 patient seen at bedside, no acute events overnight. This afternoon she began having breakthrough seizure-like episodes with hyperventilation and rhythmic body movements. He was also noted to be crying. She was given multiple injections of IV Ativan and was started on IV loading dose of IV fo sphenytoin. An MRI with and without contrast will be ordered to assess for any tumors or cranial abnormalities. Patient pending transfer to hospital with neuro hospitalist services for further workup. She will be transferred to the ICU and started on Precedex. 09/27 patient is seen and examined at bedside, case discussed with the RN, patient additional two episode of seizures, 5 minute apart, lasted around 2 minutes. During my visit the patient is postictal, hemodynamically stable. Patient with visit to for the 2nd time, resting comfortable, not verbalizing however not in distress, hemodynamically stable, saturating 100% on 2 L nasal cannula, NG tube in place. Mother at bedside, updated. We will request tele neurology to evaluate the patient. We will discuss possible transfer with case management today. REVIEW OF SYSTEMS 12-point ROS reviewed with patient. All pertinent positives mentioned above, otherwise negative, noncontributory, or non-pertinent. PHYSICAL EXAM GENERAL APPEARANCE: The patient is awake, alert, and oriented, in no acute cardiopulmonary distress. NEUROLOGICAL: Cranial nerves II-XII grossly intact. Motor is 5/5 in bilateral upper and lower extremities proximal to distal. No sensory deficits. HEENT: Face is symmetric. Pupils are equal and reactive. Extraocular movements are intact. NECK: Supple. No JVD. No thyromegaly. No submental, submandibular, pre- /postauricular, occipital or supraclavicular lymphadenopathy. CHEST: Normal chest expansion. No Telemetry. LUNGS: Absence of any rales, rhonchi or any wheezing. CARDIOVASCULAR: Regular. S1 and S2 normal. No appreciable rubs, murmurs or gallops. ABDOMEN: Obese. Soft, nontender, and nondistended. There is no rebound, voluntary guarding, or rigidity. : Deferred. No Alexander. EXTREMITIES: Non-edematous and not cyanotic. No clubbing. Good capillary refill. SKIN: No skin breakdown. Vital Signs (last 8hr) Date Time Temp Pulse Resp B/P (MAP) Pulse Ox O2 Delivery O2 Flow Rate FiO2 09/27/24 08:27 105 16 N/Cannula Low lpm 2.0 28 09/27/24 07:00 89 15 103/55 100 Nasal Cannula 2.0 09/27/24 06:45 76 18 95/65 100 Nasal Cannula 2.0 09/27/24 06:30 75 16 96/60 100 Nasal Cannula 2.0 09/27/24 06:15 79 18 95/55 99 Nasal Cannula 2.0 09/27/24 06:00 76 15 105/53 98 Nasal Cannula 2.0 09/27/24 05:45 81 18 98/52 96 Nasal Cannula 2.0 09/27/24 05:30 80 14 99/59 100 Nasal Cannula 2.0 09/27/24 05:15 76 16 96/55 99 Nasal Cannula 2.0 09/27/24 05:00 74 18 96/67 100 Nasal Cannula 2.0 09/27/24 04:45 74 16 97/54 99 Nasal Cannula 2.0 09/27/24 04:30 72 15 90/59 100 Nasal Cannula 2.0 09/27/24 04:16 75 17 94/60 100 Nasal Cannula 2.0 09/27/24 04:00 97.9 76 20 85/64 100 Nasal Cannula 2.0 LABS: Laboratory: Test 09/27/24 09:50 09/27/24 08:09 09/27/24 00:20 09/26/24 17:53 Range/Units Sodium Level 139 136-145 mmol/L Potassium Level 4.1 3.5-5.1 mmol/L Chloride Level 106 101-111 mmol/L Carbon Dioxide Level 24 21-32 mmol/L Blood Urea Nitrogen 10 7-18 mg/dL Creatinine 0.8 0.5-1.0 mg/dL Glomerular Filtration Rate Calc 104 >90 mL/min Random Glucose 184 H 70-105 mg/dL Total Calcium 8.6 8.5-10.1 mg/dL Whole Blood Glucose 189 H 70-110 MG/DL White Blood Count 4.6 L 4.8-10.8 K/uL Red Blood Count 4.51 4.00-5.50 MIL/uL Hemoglobin 12.3 12.0-16.0 g/dL Hematocrit 38.0 36-48 % Mean Corpuscular Volume 84.3 79-99 fL Mean Corpuscular Hemoglobin 27.3 27.0-33.0 pg Mean Corpuscular Hemoglobin Concent 32.4 32.0-36.0 g/dL Red Cell Distribution Width 13.2 11.0-15.5 % Platelet Count 150 130-400 K/uL Mean Platelet Volume 13.2 H 7.5-10.5 fL Immature Granulocyte % (Auto) 0.4 0-1 % Neutrophils (%) (Auto) 58.4 40.0-77.0 % Lymphocytes (%) (Auto) 32.0 21.0-51.0 % Monocytes (%) (Auto) 7.0 3.0-13.0 % Eosinophils (%) (Auto) 1.5 0.0-8.0 % Basophils (%) (Auto) 0.7 0.0-5.0 % Neutrophils # (Auto) 2.7 1.8-7.7 K/uL Lymphocytes # (Auto) 1.5 1.0-4.8 K/uL Monocytes # (Auto) 0.3 0.1-1.0 K/uL Eosinophils # (Auto) 0.07 0.00-0.70 K/uL Basophils # (Auto) 0.03 0.00-0.20 K/uL Absolute Immature Granulocyte (auto 0.02 0-1 K/uL Nucleated Red Blood Cells 0.0 0.0-0.19 % Magnesium Level 1.40 L 1.80-2.40 mg/dL Total Bilirubin 0.8 # 0.2-1.0 mg/dL Aspartate Amino Transf (AST/SGOT) 54 H 10-37 U/L Alanine Aminotransferase (ALT/SGPT) 137 H 12-78 U/L Alkaline Phosphatase 97 50-136 U/L Total Protein 6.1 6.0-8.3 g/dL Albumin 2.7 L 3.5-5.0 g/dL Lactic Acid Level 1.4 0.8-2.5 mmol/L Test 09/26/24 16:21 09/26/24 13:53 Range/Units Blood Gas Specimen Type Arterial Arterial Blood pH 7.405 7.350-7.450 Arterial Blood Partial Pressure CO2 40 32-45 mmHg Arterial Blood Partial Pressure O2 126.5 H 83.0-108.0 mmHg Arterial Blood HCO3 24.7 21.0-28.0 mmol/L Arterial Blood Oxygen Saturation 98.5 H 94.0-98.0 % Arterial Blood Base Excess 0.0 -2.0-3.0 mmol/L Blood Gas Temperature 37.0 35.5-37.0 CELSIUS Blood Gas Flow-by 2.00 0.00-15.00 L/min Blood Gas Vent Mode NC 2L ROOM AIR FiO2 28.0 % Blood Gas Specimen Comment RR, REESE,RN Total Creatine Kinase 42 21-232 U/L Procalcitonin < 0.05 L 0.05-0.5 ng/mL HIV (1&2) Antibody Non-Reactive Negative HIV P24 Antigen, Qualitative Non-Reactive Negative Current Medications Medications (Trade) Dose Ordered Sig/Pilar Route PRN Reason Start Time Stop Time Status Last Admin Dose Admin Acetaminophen (TYLenol 325MG TAB) 650 mg Q6H PRN PO FEVER/MILD PAIN LEVEL 1-3 09/23/24 22:30 10/23/24 22:29 Acetaminophen (TYLenol 650MG SUPPOSITORY) 650 mg Q6H PRN RC FEVER / MILD PAIN 1-3 IF NPO 09/23/24 22:30 10/23/24 22:29 Azithromycin 250 ml @ 250 mls/hr Q24H IVPB 09/27/24 11:00 10/02/24 10:59 09/27/24 11:55 250 MLS/HR Dexmedetomidine/ Sodium Chloride (PRECEdex 200MCG/ 50ML-NS) 200 mcg PROTOCOL IV 09/26/24 15:00 10/26/24 14:59 09/26/24 20:54 200 MCG Dextrose (D50w) 50 ml AD PRN IV HYPOGLYCEMIA PROTOCOL 09/23/24 22:30 10/23/24 22:29 Docusate Sodium (COLace 100MG CAP) 100 mg BID PRN PO c 09/23/24 22:30 10/23/24 22:29 Enoxaparin Sodium (Lovenox) 30 mg DAILY SQ 09/24/24 09:00 10/24/24 08:59 09/27/24 11:54 30 MG Glucagon (Glucagon 1mg Kit) 1 mg AD PRN IM HYPOGLYCEMIA PROTOCOL 09/23/24 22:30 10/23/24 22:29 Hydralazine HCl (APRESOLine 20MG INJ) 10 mg Q2H PRN IV SBP GREATER THAN 160 09/23/24 22:30 10/23/24 22:29 Hydroxyzine HCl (ATArax 25MG TAB) 25 mg TID PO 09/25/24 09:00 10/25/24 07:59 09/26/24 20:51 25 MG Hydroxyzine HCl (ATArax 25MG TAB) 25 mg TID PRN PO ITCHING 09/25/24 08:00 09/25/24 08:16 DC Insulin Glargine (LANtus 100 UNITS/ML 10 ML VIAL) 10 units BID@0730,2100 SQ 09/24/24 09:30 10/24/24 09:29 09/27/24 06:45 10 UNITS Insulin Human Regular (humuLIN R 100 UNIT/ML 3ML) INSULIN SLIDING SCAL... ACHS SQ 09/24/24 07:30 10/24/24 07:29 09/27/24 06:46 6 UNIT Lactated Ringer's (Lactated Ringers 1000ml) 1,000 ml BOLUS STAT IV 09/26/24 14:57 09/26/24 15:05 DC 09/26/24 16:03 1,000 ML Lactulose (Constulose 20gm/ 30ml Udcup) 20 gm Q6H PRN PO CONSTIPATION 09/23/24 22:30 10/23/24 22:29 Levetiracetam (kepPRA 500 MG TABLET) 1,000 mg BID PO 09/24/24 21:00 09/24/24 12:07 DC Levetiracetam (kepPRA 500 MG TABLET) 1,500 mg BID PO 09/24/24 21:00 09/27/24 00:05 DC 09/26/24 20:51 1,500 MG Levetiracetam (kepPRA 500 MG/5 ML SD VIAL) 1,000 mg BID IV 09/27/24 09:00 09/27/24 07:49 DC Levetiracetam 1000 mg/Sodium Chloride 100 ml @ 400 mls/hr Q12H IV 09/27/24 08:00 09/27/24 10:15 DC 09/27/24 07:46 400 MLS/HR Levetiracetam 1500 mg/Sodium Chloride 100 ml @ 400 mls/hr Q8H6 IV 09/23/24 22:00 09/24/24 09:07 DC 09/24/24 05:47 400 MLS/HR Levetiracetam 1500 mg/Sodium Chloride 115 ml @ 400 mls/hr Q12H IV 09/27/24 20:00 10/27/24 19:59 Lorazepam (AtiVAN) 1 mg Q1H PRN IVP SEIZURES 09/23/24 22:30 09/27/24 10:42 DC 09/27/24 07:29 1 MG Lorazepam (AtiVAN) 2 mg Q5MIN PRN IM SEIZURES 09/26/24 15:00 09/27/24 10:42 DC 09/26/24 15:11 2 MG Lorazepam (AtiVAN) 4 mg Q1H PRN IVP SEIZURES 09/27/24 11:30 10/04/24 11:29 Magnesium Sulfate 50 ml @ 0 mls/hr PROTOCOL PRN IV MAGNESIUM PROTOCOL 09/23/24 22:30 10/23/24 22:29 09/27/24 04:38 25 MLS/HR Ondansetron HCl (zoFRAN 4MG INJ) 4 mg Q6H PRN IVP NAUSEA/VOMITING 09/23/24 22:30 10/23/24 22:29 Oxcarbazepine (TRILeptAL) 300 mg BID PO 09/25/24 09:00 09/27/24 11:39 DC 09/26/24 20:51 300 MG Oxcarbazepine (TRILeptAL) 300 mg BID PO 09/27/24 12:00 10/27/24 11:59 09/27/24 11:54 300 MG Pantoprazole Sodium (PROTonix 40MG TAB) 40 mg DAILY PO 09/24/24 09:00 10/24/24 08:59 09/26/24 08:03 40 MG Pharmacy Profile Note (Pharmacy Communication) 1 each ONCE MISC 09/26/24 14:00 09/26/24 13:47 DC Potassium Chloride 100 ml @ 100 mls/hr AD PRN IV POTASSIUM PROTOCOL 09/23/24 22:30 10/23/24 22:29 Potassium Chloride (K-Dur/Klor-Con 20meq) 20 meq AD PRN PO POTASSIUM PROTOCOL 09/23/24 22:30 10/23/24 22:29 09/27/24 04:38 20 MEQ Potassium Chloride (KCl 10% Elixir 20meq/15ml) 20 meq AD PRN PO POTASSIUM PROTOCOL 09/23/24 22:30 10/23/24 22:29 09/25/24 18:17 20 MEQ Sodium Chloride 1,000 ml @ 100 mls/hr Q10H IV 09/23/24 22:30 10/23/24 22:29 09/27/24 11:55 100 MLS/HR Temazepam (restORIL 15 MG CAP) 15 mg HS PRN PO INSOMNIA/SLEEP 09/23/24 22:30 10/23/24 22:29 DIAGNOSTICS / RADIOLOGY: [ ] ASSESSMENT: Recurrent seizure, POA currently not taking antiseizure medication Uncontrolled diabetes with hyperglycemia, POA Hypertension, P Hyponatremia, POA Ketonuria, POA Anxiety Depression Obesity, BMI 29 Medication noncompliance PLAN: Patient remains admitted to the ICU Tele neurology consultation requested, follow input and recommendation Continue to follow critical care input and recommendation Continue Keppra 1500 mg PO BID Continue oxcarbazepine 300mg BID Continue lorazepam 4 mg IV Q 1 hours p.r.n.. Pending EEG Continue Precedex. Continue the patient on azithromycin. Case management consulted to help assist in transfer in the patient higher level of care for neurological evaluation. Conitnue hydroxyzine 25mg TID for anxiety PLAN: NEURO: Minimize central acting medications as possible. Fall Precautions. Well lighted room through the day and minimize interruptions through the night to prevent acute delirium. PULMONARY: Supplemental 02 as needed BiPAP as necessary, for respiratory distress Titrate Fio2 to keep Spo2 > or = 90% DuoNebs and CPT as needed IS hourly while awake for pulmonary hygiene prn Out of bed to chair as tolerated Maintain aspiration precautions at all times CARDIOVASCULAR: Follow hemodynamics. Vital signs per facility protocol GI & NUTRITION: Continue nutritional support Aspirations precautions Prokinetic agents and laxatives as needed KIDNEYS & ELECTROLYTES: Strict monitoring of intake and output Daily weights Avoid nephrotoxic agents Monitor electrolytes and replace as needed Goal urine output of 30mL/hr or 0.5mL/kg/hr Medications to be dosed according to renal function. Avoid contrast if possible ENDOCRINE: Maintain blood glucose between 100-180 at all times. Insulin sliding scale for blood glucose management Hypoglycemia and hyperglycemia protocol in place INFECTIOUS DISEASE: Trend temperature, WBC and procalcitonin level Follow cultures, deescalate antibiotics as soon as possible. Panculture if new onset fever HEMATOLOGY & COAGULATION: Monitor H&H. Keep Hgb > 7 Transfuse 1 unit of PRBC for Hgb < 7 Transfuse 1 pack of platelets of platelets < 20, 000 Watch for any signs and symptoms of bleeding SKIN: Pressure ulcer prevention per facility protocol Specialty mattress as needed ORTHO/REHAB Continue PT/OT PRN: MEDICATIONS Tylenol 650 mg po every 4 hrs for fever zofran 4 mg IV every 6 hrs for n/v Hydralazine 5 mg IV every 4 hrs systolic pressure > 160 bowel regiment: lactulose 20 gm PO BID PRN constipation Supportive measures: Continue GI and DVT prophylaxis Disposition: Pending improvement in clinical condition. All questions answered time spent: > 35 min Disposition: pending improvement in clinical status, resolution of seizures, transfer to higher level of care STEVEN ELDRIDGE MD Sep 27, 2024 12:00
[2024-09-27] MEDS: LORazepam 2 MG/ML 1 ML VIAL IVP PRN (12:24)
--- NOTE | 2024-09-27 12:26 | PN ---
[facility] PROGRESS NOTE Date Patient Seen: Sep 27, 2024 Time of Visit: 12:26 Supervising Physician: Dr. Jones Primary Care Physician: Attending group: [facility] hospitalist team. Outpatient Specialists: Inpatient Consults: BIS, critical Care team [employer] tevin provider, neurologist Social service PROBLEM LIST: Recurrent seizures, POA, was not taking antiseizure medication POA Breakthrough seizures despite being on Keppra p.o. and Trilepta Uncontrolled diabetes with hyperglycemia, POA HgA1c 10.7 Hypertension, POA Hyponatremia, POA Corrected. Ketonuria, POA Anxiety Depression Obesity, BMI 29 Medication noncompliance INTERVAL HISTORY: 09/27/2024: At the time of my evaluation, the patient was lying in bed. Per the staff nurse, the patient recently had a a seizure events that lasted approximately 2 minutes. There was no perioral injury or incontinence noted. Currently a RASS score of negative one. The patient underwent a MRI which was negative. The patient is breathing on 2L NC with optimal oxygen saturation. Chest x-ray done this a.m. showed finding consistent with pneumonia. Vital signs are hemodynamically stable and there was no complaint of chest pain. There was no nausea, vomiting or diarrhea. Patient is voiding spontaneously and has no complaint of dysuria. On labs today, there was no major derangements of concern. There was a slight hypomagnesemia. Otherwise, no other complaint. REVIEW OF SYSTEMS: Unable to obtain ROS from patient due to patient obtunded PHYSICAL EXAM: GENERAL: Weak, awake oriented x 0 HEENT: EOMI, Sclera non icteric, moist mucosa NECK: Supple, no JVD, trachea midline LUNGS: Clear breath sounds bilaterally. No wheezes HEART: Regular rate and rhythm. Normal S1 and S2, without murmurs ABD: Abdomen obese, soft, nontender. Bowel sounds present EXT: No clubbing cyanosis or edema. NEURO: Drowsy. Slowly responsive to tactile and verbal stimuli. Vital Signs (last 8hr) Date Time Temp Pulse Resp B/P (MAP) Pulse Ox O2 Delivery O2 Flow Rate FiO2 09/27/24 11:15 115 23 116/83 98 Room Air 09/27/24 11:00 113 21 98 Room Air 09/27/24 10:30 90 23 98 Room Air 09/27/24 10:15 90 15 130/81 100 Nasal Cannula 2.0 09/27/24 10:00 100 21 142/90 100 Nasal Cannula 2.0 09/27/24 09:46 103 11 144/94 100 Nasal Cannula 2.0 09/27/24 09:35 122 21 54/33 100 Nasal Cannula 2.0 09/27/24 09:15 100 12 130/75 100 Nasal Cannula 2.0 09/27/24 09:00 100 24 127/77 100 Nasal Cannula 2.0 09/27/24 08:45 124 19 133/80 100 Nasal Cannula 2.0 09/27/24 08:30 94 18 118/72 100 Nasal Cannula 2.0 09/27/24 08:27 105 16 N/Cannula Low lpm 2.0 28 09/27/24 08:15 104 21 128/85 100 Nasal Cannula 2.0 09/27/24 08:00 98.8 98 19 120/75 100 Nasal Cannula 2.0 09/27/24 07:45 92 17 120/72 100 Nasal Cannula 2.0 09/27/24 07:30 97 20 116/66 99 Nasal Cannula 2.0 09/27/24 07:15 103 20 111/63 99 Nasal Cannula 2.0 09/27/24 07:02 89 15 103/55 100 Nasal Cannula 2.0 09/27/24 07:00 106 9 100 09/27/24 07:00 89 15 103/55 100 Nasal Cannula 2.0 09/27/24 06:45 76 18 95/65 100 Nasal Cannula 2.0 09/27/24 06:30 75 16 96/60 100 Nasal Cannula 2.0 09/27/24 06:15 79 18 95/55 99 Nasal Cannula 2.0 09/27/24 06:00 76 15 105/53 98 Nasal Cannula 2.0 09/27/24 05:45 81 18 98/52 96 Nasal Cannula 2.0 09/27/24 05:30 80 14 99/59 100 Nasal Cannula 2.0 09/27/24 05:15 76 16 96/55 99 Nasal Cannula 2.0 09/27/24 05:00 74 18 96/67 100 Nasal Cannula 2.0 09/27/24 04:45 74 16 97/54 99 Nasal Cannula 2.0 09/27/24 04:30 72 15 90/59 100 Nasal Cannula 2.0 LABS: Hematology Labs: Test 09/27/24 11:47 Range/Units White Blood Count 5.3 4.8-10.8 K/uL Red Blood Count 5.10 4.00-5.50 MIL/uL Hemoglobin 13.7 12.0-16.0 g/dL Hematocrit 42.4 36-48 % Mean Corpuscular Volume 83.1 79-99 fL Mean Corpuscular Hemoglobin 26.9 L 27.0-33.0 pg Mean Corpuscular Hemoglobin Concent 32.3 32.0-36.0 g/dL Red Cell Distribution Width 13.0 11.0-15.5 % Platelet Count 149 130-400 K/uL Mean Platelet Volume 13.0 H 7.5-10.5 fL Immature Granulocyte % (Auto) 0.2 0-1 % Neutrophils (%) (Auto) 72.4 40.0-77.0 % Lymphocytes (%) (Auto) 20.1 L 21.0-51.0 % Monocytes (%) (Auto) 6.0 3.0-13.0 % Eosinophils (%) (Auto) 1.1 0.0-8.0 % Basophils (%) (Auto) 0.2 0.0-5.0 % Neutrophils # (Auto) 3.9 1.8-7.7 K/uL Lymphocytes # (Auto) 1.1 1.0-4.8 K/uL Monocytes # (Auto) 0.3 0.1-1.0 K/uL Eosinophils # (Auto) 0.06 0.00-0.70 K/uL Basophils # (Auto) 0.01 0.00-0.20 K/uL Absolute Immature Granulocyte (auto 0.01 0-1 K/uL Nucleated Red Blood Cells 0.0 0.0-0.19 % Chemistry Labs: Test 09/27/24 11:54 09/27/24 09:50 09/27/24 00:20 09/26/24 17:53 Range/Units Whole Blood Glucose 154 H 70-110 MG/DL Sodium Level 139 136-145 mmol/L Potassium Level 4.1 3.5-5.1 mmol/L Chloride Level 106 101-111 mmol/L Carbon Dioxide Level 24 21-32 mmol/L Blood Urea Nitrogen 10 7-18 mg/dL Creatinine 0.8 0.5-1.0 mg/dL Glomerular Filtration Rate Calc 104 >90 mL/min Random Glucose 184 H 70-105 mg/dL Total Calcium 8.6 8.5-10.1 mg/dL Magnesium Level 1.40 L 1.80-2.40 mg/dL Total Bilirubin 0.8 # 0.2-1.0 mg/dL Aspartate Amino Transf (AST/SGOT) 54 H 10-37 U/L Alanine Aminotransferase (ALT/SGPT) 137 H 12-78 U/L Alkaline Phosphatase 97 50-136 U/L Total Protein 6.1 6.0-8.3 g/dL Albumin 2.7 L 3.5-5.0 g/dL Lactic Acid Level 1.4 0.8-2.5 mmol/L Test 09/26/24 13:53 Range/Units Total Creatine Kinase 42 21-232 U/L Procalcitonin < 0.05 L 0.05-0.5 ng/mL DIAGNOSTICS / RADIOLOGY RESULTS: [ ] PLAN Patient was transferred to ICU for continuous cardiac monitoring, pulse oximetry monitoring, and for initiation of Precedex. Precedex was placed on hold by RN due to hypotension, MAP continuously below 60. Tele neuro was consulted. Obtain Keppra and Trileptal levels. Continue Trileptal, remaining tele neuro plan listed below on neurologist recommendations. Continue NS at 100 mL an hour. Social service was consulted for assistance of medications and PCP care. Supplemental oxygen as needed to keep SpO2 equal to greater than 92%. P.r.n. medications for: Pain management, nausea, vomiting, constipation, hypertension, fever. Glucometer checks a.c. and HS with insulin regular sliding scale per protocol. Vital signs per ICU protocol. Continue education on medication management and following up with PCP and Neurology upon discharge. BIS team we will follow tele neuro was recommendations: -Seizure precautions -CBC, CMP, LFT, thiamine, UA, urine drug screen, basic information on metabolic workup, magnesium -chest x-ray -CT head without contrast. -EEG -LTEEG monitoring if the patient does not returned to baseline and continues to have breakthrough seizures. -Keppra 1 g IV b.i.d. -2 g IV magnesium sulfate for serum Mag <1.8, optimize other electrolytes. -avoid epileptogenic medications such as Wellbutrin, cefepime, ultram, quinolones, and imipenem -education on seizure precautions, including appropriate state law prohibition driving, avoiding height, tub/swimming pools and standing over open flames 09/27/2024: For now, we are going to continue current management for the patient. Tele neurology was consulted and recommended to increase the Keppra to a 1500 mg IV daily, start the patient on phenytoin 100 mg IV q.8 hours, continue with Trileptal 300 mg p.o. b.i.d. and obtain a Trileptal and free phenytoin level. Also, the recommendation was to transfer the patient to a facility with capabilities of performing LT EEG monitoring. We will also increase the Ativan to 4 mg IV for management of recurrent seizure events. Transfer orders are in place and research greenhouse supervisor is aware and is arranging for transfer. We will supplement her oxygen needs as necessary. Because of the findings consistent with pneumonia, going to start the patient on azithromycin IV daily. We will monitor for any arrhythmias or other cardiac events. The patient will continue to feed orally and we will supplement as necessary. The patient has received magnesium replacement and repeat magnesium level was 1.90. We will monitor the patient's progress and response to management. We will we will await approval and bed availability at a receiving hospital at which time the patient will be transferred for further care. Further orders per attending MD and hospital course. NEURO: Minimize central acting medications as possible. Fall Precautions. Well lighted room through the day and minimize interruptions through the night to prevent acute delirium. PULMONARY: Supplemental 02 as needed Titrate Fio2 to keep Spo2 > or = 90% DuoNebs and CPT as needed IS hourly while awake for pulmonary hygiene Out of bed to chair as tolerated VAP Bundle CARDIOVASCULAR: Follow hemodynamics. Titrate vasopressor to keep MAP >65 or systolic blood pressure >95mmHg GI & NUTRITION: Continue nutritional support Aspirations precautions Prokinetic agents and laxatives as needed KIDNEYS & ELECTROLYTES: Strict monitoring of intake and output Daily weights Avoid nephrotoxic agents Monitor electrolytes and replace as needed Goal urine output of 30mL/hr or 0.5mL/kg/hr ENDOCRINE: Maintain blood glucose between 100-180 at all times. Insulin sliding scale for blood glucose management INFECTIOUS DISEASE: Trend temperature. Greenberg-culture if febrile. HEMATOLOGY & COAGULATION: Monitor H&H. Keep Hgb > 7 Transfuse 1 unit of PRBC for Hgb < 7 Transfuse 1 pack of platelets of platelets < 20, 000 Watch for any signs and symptoms of bleeding SKIN: Pressure ulcer prevention per facility protocol Rehab: PT/OT Code Status: Full Resuscitation Disposition: [Transferred to ICU] Other: Total patient care time exceeds 60 minutes excluding all procedures. SHIV MOORE NP Sep 27, 2024 12:26
--- NOTE | 2024-09-27 16:18 | PRN ---
Procedure Note [place] EEG Note # Demographics Type of EEG Read: - Routine EEG - without video Patient Location: Inpatient First Name: LEONARDO ONEILL Last Name: STACEY Date of : 2000 Age: 24 Gender: Female Facility: [facility] Time of Initial Page (Central Time): 09/27/2024 15:55 Time of Return Call (Central Time): 09/27/2024 15:55 # EEG Interpretation Start Time of EEG Read (Central Time): 09/27/2024 14:52 Stop Time of EEG Read (Central Time): 09/27/2024 15:18 Duration: 0h 26m Technical Details: - The EEG electrodes were placed using the standard International 10-20 system of electrode placement. An accessory EKG lead was used during the course of this study. - This study was recorded using the [employer] EEG software Indication: - seizure # Description Photic Stimulation: Performed Hyperventilation: NOT performed Phases Captured: - awake - drowsy Symmetry: symmetric Posterior Dominant Rhythm: absent Predominant Frequencies: - non-posterior dominant alpha (8-12 Hz) - continuous (>90%) Superimposed Frequencies: - beta (>15 Hz) - continuous (>90%) There is an excess of over-riding beta activity throughout the record. EKG: NSR # Abnormalities Stimulation: - photic stimulation does NOT cause abnormalities Epileptiform Abnormalities: - NOT present Focal Slowing: no Seizure: - NOT present Artifact: O1 and O2 are bad throughout the recording # Impression Impression: abnormal 1. Excess Beta # Clinical Correlation Clinical Correlation: 1. Excess beta is a non-specific finding but may be seen in the setting of Benzodiazepine or Barbiturate use # Logistics Telemedicine: remote EEG review: EEG reviewed remotely # Demographics First Name: LEONARDO ONEILL Last Name: STACEY Facility: [facility] HOLA MOLINA MD Sep 27, 2024 16:18
--- NOTE | 2024-09-27 19:48 | NUR ---
Report Report given to [employer]. all questions answered. EMS called at 1950. will wait for EMS to pick up man patient. Called mother,Reema, to update on transfer.
[2024-09-27] MEDS: leveTIRACEtam 500 MG/5 ML SD V 1,500 MG in 0.9%NACL 100ML 100 ML IV SCH (20:16)
[2024-09-28] VITALS: BP 117/67; PULSE 75; RESP 15; TEMP 98; O2SAT 98
[2024-09-28 01:00] VITALS: BP 100/60; PULSE 75; RESP 12
--- NOTE | 2024-09-28 01:33 | NUR ---
EMS picker feeder Patient awake and alert denies chest pain or shortness of breath. patient succesfully transferred to stretcher and Addendum: 09/28/24 at 0136 by LUCAS QUESADA RN RN placed on EMS monitoring. Mother of patient notified of picker feeder.
--- NOTE | 2024-09-28 08:11 | DS ---
Discharge Summary Hospital Course Summary: Date of service 02/24/2025. Ms Knight is a 24-year-old female with a history of DM, HTN, obesity, anxiety, and seizure who was brought in by EMS for evaluation of a seizure activity. Patient has a history of seizures during in 2022 and underwent an emergency in July of 2023. Since then she has been on Keppra 1000 mg p.o. twice a day. According to EMS family stated that she did not take her Keppra and began having seizure which lasted approximately 2 minutes and she was postictal and unresponsive. Her sugar was about 468. 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 EN route to the ER, patient had another seizure activity as she arrived which lasted approximately another 2 minutes. ED provider witnessed the activity which was rhythmic shaking on 1 side mostly right. She was responsive by nodding and had tears rolling down her cheeks. Ed reported that she did nodded yes when asked if she had a headache. V/S on arrival: Temperature 98.8 pulse 106 respirations 20 blood pressure 148/80 pulse oximetry 98% on 2 L via nasal cannula placed by EMS In ED patient was administered NS IV and Keppra IV [address] head was negative. ED provider request patient be admitted with the diagnosis of recurrent seizure, uncontrolled DM with hyperglycemia, anxiety, medical noncompliance. The patient was admitted to the medical floor with the following interval history: 2/3 Pt seen at bedside, no acute events overnight. Nursing reports another seizure this am broken with IV ativan. She has been stable otherwise. At bedside patient is sleepy but asymptomatic. She reports she has been asymptomatic with all her medications as she does not have insurance. transportation services representative consulted to assist with getting affordable medications and care. EEG has been ordered, patient transitioned to PO keppra at an increased dose. Continue observation with seizure precautions. 2/4 patient seen at bedside she was sleeping during the medical interview. Nursing reported overall seizure episodes yesterday, that were preceded by hyperventilation. Discussed these findings with the patient's mother who was at bedside and she reports patient has had several of these hypoventilation episodes when she gets anxious or stressed out since her last seizure approximately 13 months ago. When her mother instruct her to slow her breathing down and relax she typically comes down with no seizure activity noted. This suggests she has an underlying anxiety disorder and that perhaps the seizures are not true generalized seizures but an anxiety attack. She has been started on hydroxyzine for the anxiety and oxcarbazepine has been added for breakthrough seizure. Patient would benefit from continuous EEG monitoring, have requested patient be transferred to a hospital with a in-house neuro hospitalists with continuous EEG capabilities. administrative staff supervisor to assist. Vitals and labs are relatively unremarkable. 09/26 patient seen at bedside, no acute events overnight. This afternoon she began having breakthrough seizure-like episodes with hyperventilation and rhythmic body movements. He was also noted to be crying. She was given multiple injections of IV Ativan and was started on IV loading dose of IV fosphenytoin. An MRI with and without contrast will be ordered to assess for any tumors or cranial abnormalities. Patient pending transfer to hospital with neuro hospitalist services for further workup. She will be transferred to the ICU and started on Precedex. 09/27 patient is seen and examined at bedside, case discussed with the RN, patient additional two episode of seizures, 5 minute apart, lasted around 2 minutes. During my visit the patient is postictal, hemodynamically stable. Patient with visit to for the 2nd time, resting comfortable, not verbalizing however not in distress, hemodynamically stable, saturating 100% on 2 L nasal cannula, NG tube in place. Mother at bedside, updated. We will request tele neurology to evaluate the patient. We will discuss possible transfer with case management today. As of 09/27 transfer center called, patient accepted to [facility] for continuation of medical care. Education Supervisor(s): Tele neurologist Assessment/Plan: Final diagnosis Recurrent seizure, POA currently not taking antiseizure medication Uncontrolled diabetes with hyperglycemia, POA Hypertension, P Hyponatremia, POA Ketonuria, POA Anxiety Depression Obesity, BMI 29 Medication noncompliance Discharge Instructions: Patient transferred to [facility] for continuation of medical care. Home Medications: Reported Medications Levetiracetam (Keppra) 1,000 Mg Tablet, 1000 MG PO BID, TAB 11/08/23 Metformin HCl (Metformin HCl) 500 Mg Tablet, 500 MG PO BIDMEALS, TAB 11/08/23 Time spent arranging discharge: 31-60 minutes STEVEN ELDRIDGE MD Sep 28, 2024 08:11
== END 2024-09-28 01:30 | disposition short-term general hospital (02) | DRG 101 ==
LOC: EDH 19:00 → EDHIP 19:01 → OBSVTOIN 19:01 → 3BH 09-24 20:03 → 2CH 09-26 15:50
PROVIDERS: ADMIT Internal Medicine; ATTEND Internal Medicine
PROC: 4A00X4Z Measurement of Central Nervous Electrical Activity, External Approach (ICD-10-PCS; principal; 2024-09-27)
DX: G40.919 Epilepsy, unspecified, intractable, without status epilepticus (principal); E87.1 Hypo-osmolality and hyponatremia; E11.65 Type 2 diabetes mellitus with hyperglycemia; I10 Essential (primary) hypertension; F41.9 Anxiety disorder, unspecified; R82.4 Acetonuria; G40.909 Epilepsy, unspecified, not intractable, without status epilepticus; R06.4 Hyperventilation; I95.9 Hypotension, unspecified; E66.9 Obesity, unspecified; F32.A Depression, unspecified; Z91.148 Patient's other noncompliance with medication regimen for other reason; K59.00 Constipation, unspecified; Z59.71 Insufficient health insurance coverage; Z72.820 Sleep deprivation; Z68.29 Body mass index [BMI] 29.0-29.9, adult; Z79.899 Other long term (current) drug therapy
CPT/HCPCS: 36415; 36600; 70450; 70553; 71045; 80048; 80053; 80177; 80185; 80305; 81001; 82542; 82550; 82803; 82948; 83036; 83605; 83735; 84100; 84145; 84443; 84703; 85025; 85027; 86701; 87040; 87390; 87635; 87804; 95816; 99285; G0378; J0456; J1650; J1815; J1953; J2060; J3475; J7030; Q2009; A9575

== ENCOUNTER 2025-01-22 18:42 | Emergency (ER) | payer BC, MEDICAID ==
[~2025-01-22] VITALS: Ht 157.5 cm; Wt 83.0 kg
--- NOTE | 2025-01-22 18:53 | ERN ---
ED Note History of Present Illness Stated Complaint: ABDOMINAL PAIN Chief Complaint: Abdominal Pain Time Seen by MD: 18:44 Dictation: PATIENT IS A 24-YEAR-OLD FEMALE COMING IN TODAY WITH BILATERAL LOWER ABDOMINAL PELVIC PAIN WORSE TO THE RIGHT WITH NAUSEA ONSET WAS TUESDAY. NO DIARRHEA NO FLANK PAIN NO CHANGE IN URINATION. SHE HAS NOT BEEN TO SEE YOUR PRIMARY CARE DOCTOR AT [facility], HAS NOT APPOINTMENT IN TWO WEEKS. SHE ALSO STATES SHE TOOK A HOME TEST OVER THE WEEKEND AND IT WAS POSITIVE AND WANTS TO BE CHECKED FOR . Allergies: Coded Allergies: codeine (Unverified Allergy, Severe, ANAPHYLAXIS, 11/07/23) Home Meds Reported Medications Levetiracetam (Keppra) 1,000 Mg Tablet, 1000 MG PO BID, TAB 11/08/23 Metformin HCl (Metformin HCl) 500 Mg Tablet, 500 MG PO BIDMEALS, TAB 11/08/23 Past Medical History Past Medical History: Anxiety, Depression, Diabetes-Type II, Hypertension, Seizure Surgical History: Cholecystectomy, Family History: Negative Social History: Negative History: Not Applicable Review of System Dictation CONSTITUTIONAL: NEGATIVE EXCEPT FOR HPI HEAD/FACE: NEGATIVE EXCEPT FOR HPI EENT: NEGATIVE EXCEPT FOR HPI RESPIRATORY: NEGATIVE EXCEPT FOR HPI GASTROINTESTINAL/ABDOMINAL: NEGATIVE EXCEPT FOR HPI LOWER ABDOMINAL PAIN WITH NAUSEA GENITOURINARY: NEGATIVE EXCEPT FOR HPI MUSCULOSKELETAL: NEGATIVE EXCEPT FOR HPI INTEGUMENTARY: NEGATIVE EXCEPT FOR HPI NEUROLOGICAL/PSYCH: NEGATIVE EXCEPT FOR HPI HEMATOLOGIC/LYMPHATIC: NEGATIVE EXCEPT FOR HPI ALL SYSTEMS NEGATIVE, EXCEPT NOTED ABOVE. 13 POINT REVIEW OF SYSTEMS ASSESSED AND ALL NEGATIVE EXCEPT FOR ABOVE. Initial Vital Sign VS Vital Signs Date Time Temp Pulse Resp B/P (MAP) Pulse Ox O2 Delivery O2 Flow Rate FiO2 01/22/25 18:43 97.7 89 16 120/76 98 Room Air 01/22/25 19:39 0 21 Physical Exam Dictation VITAL SIGNS REVIEWED GENERAL APPEARANCE: ALERT, ORIENTED X 3, NO ACUTE DISTRESS, WELL DEVELOPED, NOURISHED. HEAD AND FACE: NON-TRAUMATIC. EYES: PERRL, PINK CONJUNCTIVAS, EYELID NO TRAUMA, ANTERIOR CHAMBER WITH ARCUS SENILIS. EARS: PINNAS INTACT AND NO SIGNS OF TRAUMA OR ERYTHEMA EAR CANALS CLEAR AND NO DISCHARGE TM NO ERYTHEMA NOSE: NO DISCHARGE, NO BLEEDING. OROPHARYNX: MOUTH NORMAL, TONGUE PINK, PHARYNX CLEAR,NO ERYTHEMA, TONSILS NO EXUDATES, NO ABSCESSES NOTED, MUCOUS MEMBRANE MOIST NECK: SUPPLE, NON-TENDER, NO THYROMEGALY, NO MASSES, NO JVD, NO BRUITS BREAST:DEFERRED CHEST:NO TENDERNESS, NO CREPITUS, NO PARADOXICAL MOVEMENT, NO RETRACTIONS LUNGS:CLEAR, WELL-VENTILATED, SYMMETRIC, NO RALES, NO WHEEZING, NO RHONCHI, NO STRIDOR, GOOD BREATH SOUNDS BILATERALLY HEART: REGULAR RATE, REGULAR RHYTHM, NO MURMUR, NO GALLOPS VASCULAR: NO PERIPHERAL EDEMA, ABDOMEN: SOFT, POSITIVE BOWEL SOUNDS, NONDISTENDED, NO GUARDING, DIFFUSE LOWER ABDOMINAL AND PELVIC PAIN GREATER ON THE RIGHT. NEGATIVE REBOUND RECTAL: DEFERRED GENITAL: DEFERRED NEUROLOGICAL: NORMAL SPEECH, MOTOR FUNCTION INTACT, SENSORY FUNCTION INTACT MUSCULOSKELETAL: NECK NONTENDER, FULL RANGE OF MOTION, BACK NONTENDER, FULL RANGE OF MOTION, EXTREMITIES: NONTENDER, FULL RANGE OF MOTION SKIN: COLOR PINK, DRY, NO TURGOR, NO RASH, NO LACERATIONS, NO ABRASIONS, NO CONTUSIONS. LYMPHATIC: DEFERRED Results (Laboratory/Radiology) Laboratory/Radiology Laboratory Tests Test 01/22/25 18:55 01/22/25 19:07 01/22/25 19:15 Urine Color LIGHT-YELLOW (YELLOW) Urine Appearance CLEAR (CLEAR) Urine pH 5.0 (5.0-8.0) Urine Specific Offerle 1.036 (1.001-1.031) Urine Protein NEGATIVE mg/dL (NEGATIVE) Urine Glucose (UA) >=1000 mg/dL (NEGATIVE) H Urine Ketones NEGATIVE mg/dL (NEGATIVE) Urine Occult Blood NEGATIVE (NEGATIVE) Urine Nitrate NEGATIVE (NEGATIVE) Urine Bilirubin NEGATIVE mg/dL (NEGATIVE) Urine Urobilinogen 0.2 mg/dL (0.2-1.0) Urine Leukocyte Esterase NEGATIVE Pascual/uL Urine RBC 0-1 /HPF (0-1) Urine WBC 0-1 /HPF (0-1) Urine Squamous Epithelial Cells RARE /HPF (0-2) Urine Bacteria RARE /HPF (None Seen) Human Chorionic Gonadotropin, Quant 98 mIU/mL (0-5) H Serum Test, Qualitative POSITIVE (NEGATIVE) H White Blood Count 6.5 K/uL (4.8-10.8) Red Blood Count 5.06 MIL/uL (4.00-5.50) Hemoglobin 13.9 g/dL (12.0-16.0) Hematocrit 41.6 % (36-48) Mean Corpuscular Volume 82.2 fL (79-99) Mean Corpuscular Hemoglobin 27.5 pg (27.0-33.0) Mean Corpuscular Hemoglobin Concent 33.4 g/dL (32.0-36.0) Red Cell Distribution Width 13.3 % (11.0-15.5) Platelet Count 157 K/uL (130-400) Mean Platelet Volume 14.0 fL (7.5-10.5) H Immature Granulocyte % (Auto) 0.5 % (0-1) Neutrophils (%) (Auto) 66.6 % (40.0-77.0) Lymphocytes (%) (Auto) 23.7 % (21.0-51.0) Monocytes (%) (Auto) 7.6 % (3.0-13.0) Eosinophils (%) (Auto) 1.1 % (0.0-8.0) Basophils (%) (Auto) 0.5 % (0.0-5.0) Neutrophils # (Auto) 4.3 K/uL (1.8-7.7) Lymphocytes # (Auto) 1.5 K/uL (1.0-4.8) Monocytes # (Auto) 0.5 K/uL (0.1-1.0) Eosinophils # (Auto) 0.07 K/uL (0.00-0.70) Basophils # (Auto) 0.03 K/uL (0.00-0.20) Absolute Immature Granulocyte (auto 0.03 K/uL (0-1) Nucleated Red Blood Cells 0.0 % (0.0-0.19) Sodium Level 136 mmol/L (136-145) Potassium Level 3.4 mmol/L (3.5-5.1) L Chloride Level 102 mmol/L (101-111) Carbon Dioxide Level 27 mmol/L (21-32) Blood Urea Nitrogen 12 mg/dL (7-18) Creatinine 0.8 mg/dL (0.5-1.0) Glomerular Filtration Rate Calc 104 mL/min (>90) Random Glucose 347 mg/dL (70-105) H Total Calcium 9.2 mg/dL (8.5-10.1) ED Course ED Course Orders Procedure Category Date Status Time Testing, LAB 01/22/25 Complete Serum Hcg 18:46 Cbc With Differential LAB 01/22/25 Complete 18:46 Urinalysis Profile LAB 01/22/25 Complete 18:46 Basic Metabolic Panel LAB 01/22/25 Complete 18:46 0.9%Nacl 1000ml (Ns PHA 01/22/25 Complete 1000ml) 19:00 Ondansetron 4mg Inj PHA 01/22/25 Complete (Zofran 4mg Inj) 19:00 Us Ob <14 Weeks US 01/22/25 Resulted 18:46 Hcg,Quantitative LAB 01/22/25 Complete 20:11 Current Medications Medications (Trade) Dose Ordered Sig/Pilar Route PRN Reason Start Time Stop Time Status Last Admin Dose Admin Ondansetron HCl (zoFRAN 4MG INJ) 4 mg ONCE ONCE IVP 01/22/25 19:00 01/22/25 19:01 DC 01/22/25 19:23 Sodium Chloride 1,000 ml @ 0 mls/hr ONCE ONCE IV 01/22/25 19:00 01/22/25 19:01 DC 01/22/25 19:23 Vital Signs Date Time Temp Pulse Resp B/P (MAP) Pulse Ox O2 Delivery O2 Flow Rate FiO2 01/22/25 21:29 98.1 75 19 123/66 99 Room Air* 0 21 01/22/25 19:39 97.7 89 16 120/76 98 Room Air* 0 21 01/22/25 18:43 97.7 89 16 120/76 98 Room Air 2130/PATIENT DISCHARGED HOME KNOWING SHE HAS EARLY PAIN IN . IN ADDITION SHE HAS UNCONTROLLED DIABETES AND SHE HAS A MEDICATIONS AT HOME. SHE IS ALSO AWARE THAT THE ULTRASOUND DEMONSTRATED NO SAC AT THIS TIME HOWEVER IT IS VERY EARLY AND SHE WILL NEED SERIAL FOLLOW UP WITH HER ENVIRONMENTAL SAMPLING TECHNICIAN DOCTOR. NO URINARY TRACT INFECTION PATIENT STATES SHE TAKES METFORMIN 500 MG B.I.D., SHE WAS INSTRUCTED TO INCREASE HER METFORMIN TO A 1000 MG B.I.D. WITH FOOD. VERBALIZED UNDERSTANDING BEFORE SHE WAS DISCHARGED HOME. Medical Decision Making MDM MEDICAL DISCHARGE MAKING BASED ON PELVIC EXAM LABS TO INCLUDE ULTRASOUND AND HCG TEST PATIENT HAS A UNCONTROLLED DIABETES HOWEVER SHE HAS A MEDICATIONS AT HOME. NO URINARY TRACT INFECTION PATIENT HAS A VERY EARLY . DX & DISP Disposition: Discharge Departure Impression: Primary Impression: Abdominal pain in Additional Impression: Uncontrolled diabetes mellitus Condition: Stable Additional Instructions: FOLLOW-UP WITH PRIMARY CARE PROVIDER IN 1 TO 2 DAYS. TAKE MEDICATIONS DIRECTED HERE IN THE EMERGENCY ROOM. OKAY TO CONTINUE HOME MEDICATIONS UNLESS OTHERWISE DISCUSSED DURING YOUR VISIT IN THE EMERGENCY ROOM TODAY. RETURN TO YOUR NEAREST EMERGENCY ROOM IF SYMPTOMS WORSEN OR IF THERE IS NO IMPROVEMENT. CALL 911 IF YOU NEED IMMEDIATE ASSISTANCE. TAKE TYLENOL [id number] NEEDED AND IF NO CONTRAINDICATIONS ARE PRESENT. INCREASE ORAL HYDRATION. A WOUND CULTURE OR URINE CULTURE WAS ORDERED HERE IN THE EMERGENCY ROOM DEPARTMENT PLEASE FOLLOW-UP WITH PRIMARY CARE PROVIDER AND ADVISE THEM TO GET REPEAT PORTS FROM OUR FACILITY. IF YOU HAD ANY JELLY WRAP/SPLINTS THAT WERE APPLIED HERE, PLEASE DO NOT REMOVE THEM UNTIL YOU SEE YOUR PRIMARY CARE OR SPECIALTY. START VITAMINS [id number]. TAKE TYLENOL ONLY FOR PAIN. TAKE YOUR DIABETIC MEDICATIONS DIRECTED FROM YOUR DOCTOR AT [facility]. NO [id number] MEDICATIONS EXCEPT TYLENOL, NO ALCOHOL, NO TOBACCO, NO DRUG USE UNTIL CLEARED BY YOUR DOCTOR. SEE YOUR ENVIRONMENTAL SAMPLING TECHNICIAN DOCTOR IN THE NEXT 1-2 DAYS FOR FOLLOW UP Referrals: SELF,REFERRAL (PCP) Time of Disposition: 21:32 I have reviewed the case, and I agree with, Diagnosis and Plan ZUHAIR DOS SANTOS NP Jan 22, 2025 18:53
[2025-01-22 19:07] LABS: APPEARANCE,URINE CLEAR (CLEAR); BILIRUBIN,URINE NEGATIVE (NEGATIVE); COLOR,URINE LIGHT-YELLOW (YELLOW); GLUCOSE, URINE (UA) >=1000 mg/dL (NEGATIVE); KETONES,URINE NEGATIVE (NEGATIVE); LEUKOCYTE ESTERASE ,URINE NEGATIVE Leu/uL (NEGATIVE); NITRATE,URINE NEGATIVE (NEGATIVE); OCCULT BLOOD,URINE NEGATIVE (NEGATIVE); PROTEIN,URINE NEGATIVE (NEGATIVE); UROBILINOGEN,URINE 0.2 mg/dL (0.2-1.0)
[2025-01-22 19:09] LABS: ADD UA MICROSCOPIC YES
[2025-01-22 19:11] LABS: BACTERIA,URINE RARE /HPF (None Seen); RBC,URINE 0-1 /HPF (0-1); SQUAMOUS EPITHELIAL CELL,UR RARE /HPF (0-2); WBC,URINE 0-1 /HPF (0-1)
[2025-01-22 19:23] LABS: BASOPHILS # (AUTO) 0.03 K/uL (0.00-0.20); BASOPHILS % (AUTO) 0.5 % (0.0-5.0); EOSINOPHILS # (AUTO) 0.07 K/uL (0.00-0.70); EOSINOPHILS % (AUTO) 1.1 % (0.0-8.0); HEMATOCRIT 41.6 % (36-48); IMMATURE GRANULOCYTE ABSOLUTE 0.03 K/uL (0-1); LYMPHOCYTES # (AUTO) 1.5 K/uL (1.0-4.8); LYMPHOCYTES % (AUTO) 23.7 % (21.0-51.0); MEAN CORPUSCULAR HEMOGLOBIN 27.5 pg (27.0-33.0); MEAN CORPUSCULAR HGB CONC 33.4 g/dL (32.0-36.0); MEAN CORPUSCULAR VOLUME 82.2 fL (79-99); MONOCYTES # (AUTO) 0.5 K/uL (0.1-1.0); MONOCYTES % (AUTO) 7.6 % (3.0-13.0); NEUTROPHILS # (AUTO) 4.3 K/uL (1.8-7.7); NEUTROPHILS % (AUTO) 66.6 % (40.0-77.0); PLATELET COUNT (AUTO) 157 K/uL (130-400); RED BLOOD CELL COUNT(AUTO) 5.06 MIL/uL (4.00-5.50); RED CELL DISTRIBUTION WIDTH 13.3 % (11.0-15.5); WHITE BLOOD COUNT (AUTO) 6.5 K/uL (4.8-10.8)
[2025-01-22] MEDS: 0.9%NACL 1000ML 1,000 ML IV ONE (19:23)
[2025-01-22] MEDS: ondanSETRON 4MG INJ IVP ONE (19:23)
[2025-01-22 19:33] LABS: CREATININE 0.8 mg/dL (0.5-1.0); POTASSIUM 3.4 mmol/L (3.5-5.1)
--- NOTE | 2025-01-22 20:21 | HMCIMG ---
US OB <14 WEEKS HISTORY: No additional history given. COMPARISON: None TECHNIQUE: Obstetrical ultrasound study was performed. FINDINGS: The uterus measures 8.5 x 3.8 centimeter. Right ovary is not well-visualized, visualized. Left ovary measures 3.2 x 1.8 x 3.2 centimeter. No evidence of intrauterine gestational sac is seen. In a patient with positive test, differential diagnosis would include early versus ectopic versus missed . Beta-hCG correlation is recommended. Endometrial thickness is 7 mm. No fluid is seen in the cul-de-sac. IMPRESSION: 1. No evidence of intrauterine gestational sac is seen. In a patient with positive test, differential diagnosis would include early versus ectopic versus missed . Beta hCG correlation is recommended..
[2025-01-22 21:29] VITALS: BP 123/66; PULSE 75; RESP 19; TEMP 98; O2SAT 99
== END 2025-01-22 21:57 | disposition home or self-care (01) ==
LOC: EDH 18:42
DX: O26.891 Other specified pregnancy related conditions, first trimester (principal); R10.2 Pelvic and perineal pain; E11.65 Type 2 diabetes mellitus with hyperglycemia; I10 Essential (primary) hypertension; Z79.899 Other long term (current) drug therapy; Z88.5 Allergy status to narcotic agent; Z90.49 Acquired absence of other specified parts of digestive tract
CPT/HCPCS: 99284; 96374; 76801; 80048; 84703; 84702; 85025; 81001; 36415; J7030; J2405